=== PATIENT | male | born 1965 | race Caucasian/White ===

== ENCOUNTER 2019-06-02 15:39 | Inpatient (IN) | payer OTHER ==
[2019-06-02 16:34] VITALS: BMI 28.3
[2019-06-02] MEDS ORDERED: SODIUM CHLORIDE 1,000 ML IV STA (18:12)
--- NOTE | 2019-06-02 18:47 | PDOC ---
History of Present Illness - General Chief Complaint: Altered Mental Status Stated Complaint: ALTERED MENTAL STATUS, SICK Time Seen by Provider: 06/02/19 17:17 - History of Present Illness Initial Comments: 06/02/19 21:10 54yo M hx horseshoe kidney and multiple kidney stones and infections s/p R nephrostomy tube placement BIBEMS found on street confused c/o tube detaching from bag. Pt is poor historian but states police brought him in because he was sitting in front of someone's house. Pt states he doesn't have anywhere to live right now. Pt states he's confused. Pt states he stepped on his nephrostomy collection bag and the tube disconnected, spilling the urine. States he had the nephrostomy tube placed 1 month ago at [place]. States he takes Seroquel, Methadone, an antibiotic?, and Xanax. Endorses smoking but denies alcohol and illicit drug use recently, including IVDU. Endorses hx of drug use. Endorses flank pain, burning with urination. Denies fall, trauma, headache, dizziness, vision changes, CP, SOB, back pain, neck pain, abdominal pain, D/C, N/V, F/C, blood in stool, numbness/tingling, weakness. No PCP. Deneis allergies. Past History - Past Medical History Allergies/Adverse Reactions: Allergies Allergy/AdvReac Type Severity Reaction Status Date / Time No Known Allergies Allergy Verified 06/02/19 16:02 Home Medications: Ambulatory Orders Methadone [Dolophine -] 110 mg PO DAILY 06/02/19 Quetiapine Fumarate [Seroquel] 100 tab PO DAILY 06/02/19 - Suicide/Smoking/Psychosocial Hx Smoking History: Smoker current status UNK Hx Alcohol Use: No Drug/Substance Use Hx: No Review of Systems - Review of Systems Comments:: 06/02/19 21:19 Constitutional: Negative for chills, fever, fatigue. HENT: Negative for sore throat, rhinorrhea, congestion. Eyes: Negative for visual disturbance. Respiratory: Negative for shortness of breath, cough, and wheezing. Cardiovascular: Negative for chest pain, palpitations, and leg swelling. Gastrointestinal: Negative for abdominal pain, blood in stool, constipation, diarrhea, nausea, and vomiting. Genitourinary: Positive for flank pain, dysuria, and nephrostomy tube detachment from bag. Negative for hematuria. Musculoskeletal: Negative for myalgias, back pain, and neck pain. Skin: Negative for rash. Neurological: Negative for light-headedness, dizziness, syncope, weakness, numbness and headaches. Psychiatric/Behavioral: Positive for confusion. Negative for behavioral problems. *Physical Exam - Vital Signs Last Vital Signs Temp Pulse Resp BP Pulse Ox 98.6 F 83 16 154/97 99 06/02/19 16:00 06/02/19 16:00 06/02/19 16:00 06/02/19 16:00 06/02/19 16:30 - Physical Exam Comments: 06/02/19 21:20 Gen: Alert, NAD, tired but comfortable-appearing. HEENT: PERRL, EOMI, MMM, NCAT. No conjunctival pallor. Sclera are non-icteric. Oropharynx is clear. CV: Regular rate and rhythm. No murmurs, rubs, or gallops. PULM: No resp distress. CTAB, no wheezes, rales, or rhonchi. ABD: +R CVA tenderness, R nephrostomy tube in place without any erythema, warmth , bleeding, or drainage; tube end draining well to bed because detached from bag ; abdomen soft, NT/ND, no rebound tenderness or guarding. BACK: No TTP of c/t/l-spine. No step-offs or deformities. MSK: No bony deformities. 2+ pulses in all extremities. NEURO: Alert but sleepy, oriented to name and event, but not place or month. PERRL. 5/5 strength in all extremities. Sensation to light touch intact in all extremities. No pronator drift. No dysmetria. No dysdiadochokinesia. No abnormal nystagmus. No skew deviation. EXTREMITIES: No cyanosis. No clubbing. No edema. No calf tenderness. PSYCH: Slightly slurred speech, speaks slowly, confused. Normal mood. SKIN: Red skin (pt states sunburn) on sun-exposed areas of body, no blisters. Warm and dry. Normal capillary refill. No rashes. No jaundice. Heart Score/ECG Review - ECG Impressions Comment:: 06/02/19 21:32 NSR, 74bpm, normal axis, no SHELLIE/TWIs ED Treatment Course - LABORATORY CBC & Chemistry Diagram: 06/02/19 20:55 06/02/19 20:15 - RADIOLOGY Radiology Studies Ordered: Category Date Time Status ABDOMEN & PELVIS CT WITH CONTR [CT] Stat CT Scan 06/02/19 18:[address] WITHOUT CONTRAST [CT] Stat CT Scan 06/02/19 17:57 Ordered CHEST PA & LAT [RAD] Stat Radiology 06/02/19 17:59 Ordered Medical Decision Making - Medical Decision Making 54yo M hx horseshoe kidney and multiple kidney stones and infections s/p R nephrostomy tube placement BIBEMS found on street confused with nephrostomy tube in place and draining well but detached from bag. No signs of infection, displacement, or obstruction of nephrostomy. Flank pain and dysuria concerning for UTI or renal stones - UA/UC and CTAP. Consider and r/o other etiologies of AMS including anemia, infection, metabolic derangements, ACS/MS (low pre-trop/ EKG HEART score, but poor historian), intoxication, and intracranial hemorrhage (although unlikely due to lack of trauma and lack of focal neurologic deficits) . Pt homeless and seems unable to care for self; likely admit pending workup. -EKG -Labs: CBC, CMP, Cardiac profile, UA/UC, Drug screen, Acetaminophen, Salicylate , EtOH -1L IVF -Rectal temp -Imaging: CTH, CTAP -Dispo: likely admit pending workup Pt refused rectal temp. 06/02/19 20:55 IV US done for labs. Due to WBC 15.9, added Acetone, Lactic, and BCx x2. 06/02/19 21:35 Pt appears comfortable sleeping in bed. 06/02/19 21:36 Labs reviewed. WBC 12.8, trace acetone. 06/02/19 21:[address] Austin. *DC/Admit/Observation/Transfer Diagnosis at time of Disposition: Altered mental status - Discharge Dispostion Condition at time of disposition: Fair - Referrals - Patient Instructions - Post Discharge Activity
[2019-06-02 19:15] LABS: BASO % 0.7 % (0-2.0); EOS % 0.6 % (0-4.5); HEMATOCRIT 38.1 % (35.4-49); HEMOGLOBIN 12.5 GM/dL (11.7-16.9); LYMPH % 19.7 % (8-40); MCH 26.2 pg (25.7-33.7); MCHC 32.7 g/dl (32.0-35.9); MEAN CELL VOLUME 80.1 fl (80-96); MEAN PLT VOLUME 9.6 fl (7.5-11.1); MONO % 6.7 % (3.8-10.2); NEUT % 72.3 % (42.8-82.8); PLATELET COUNT 267 K/MM3 (134-434); RBC 4.76 M/mm3 (4.00-5.60); RDW 17.4 % (11.9-15.9); WHITE BLOOD COUNT 15.9 K/mm3 (4.0-10.0)
[2019-06-02 21:17] LABS: BASO % 0.7 % (0-2.0); HEMATOCRIT 37.3 % (35.4-49); MCH 26.3 pg (25.7-33.7); WHITE BLOOD COUNT 12.8 K/mm3 (4.0-10.0)
[2019-06-02 21:28] LABS: EOS % 1.2 % (0-4.5); HEMOGLOBIN 12.2 GM/dL (11.7-16.9); INR 1.17 (0.83-1.09); MCHC 32.8 g/dl (32.0-35.9); MEAN CELL VOLUME 80.1 fl (80-96); MEAN PLT VOLUME 9.1 fl (7.5-11.1); MONO % 6.8 % (3.8-10.2); NEUT % 72.3 % (42.8-82.8); PLATELET COUNT 304 K/MM3 (134-434); PROTHROMBIN TIME (PATIENT) 13.8 SEC (9.7-13.0); RBC 4.65 M/mm3 (4.00-5.60); RDW 17.7 % (11.9-15.9)
[2019-06-02 21:34] LABS: ACETONE SERUM TRACE (NEGATIVE)
[2019-06-02 21:59] LABS: ALBUMIN 3.8 g/dl (3.4-5.0); ALK PHOS 126 U/L (45-117); ANION GAP 11 MMOL/L (8-16); BILIRUBIN,TOTAL 0.8 mg/dL (0.2-1); BLOOD UREA NITROGEN 43.3 mg/dL (7-18); CALCIUM 9.8 mg/dL (8.5-10.1); CHLORIDE 101 mmol/L (98-107); CO2 27 mmol/L (21-32); CREATININE 1.3 mg/dL (0.55-1.3); GLUCOSE,RANDOM 81 mg/dL (74-106); POTASSIUM 4.7 mmol/L (3.5-5.1); SGOT/AST 16 U/L (15-37); SGPT/ALT 29 U/L (13-61); SODIUM 139 mmol/L (136-145); TOT PROT 7.7 g/dl (6.4-8.2)
--- NOTE | 2019-06-03 01:20 | PDOC ---
*Physical Exam - Vital Signs Last Vital Signs Temp Pulse Resp BP Pulse Ox 98.6 F 83 16 154/97 99 06/02/19 16:00 06/02/19 16:00 06/02/19 16:00 06/02/19 16:00 06/02/19 16:30 ED Treatment Course - LABORATORY CBC & Chemistry Diagram: 06/04/19 06:00 06/04/19 06:00 - ADDITIONAL ORDERS Additional order review: Laboratory Results 06/02/19 06/02/19 06/02/19 20:55 20:50 20:50 PT with INR 13.80 H INR 1.17 H Sodium Potassium Chloride Carbon Dioxide Anion Gap BUN Creatinine Est GFR (CKD-EPI)AfAm Est GFR (CKD-EPI)NonAf Random Glucose Lactic Acid 1.3 Calcium Total Bilirubin AST ALT Alkaline Phosphatase Ammonia Creatine Kinase 73 Troponin I < 0.02 Total Protein Albumin Salicylates Acetaminophen Alcohol, Quantitative Acetone, Qual Trace 06/02/19 06/02/19 20:50 20:15 PT with INR INR Sodium 139 Potassium 4.7 Chloride 101 Carbon Dioxide 27 Anion Gap 11 BUN 43.3 H Creatinine 1.3 Est GFR (CKD-EPI)AfAm 71.69 Est GFR (CKD-EPI)NonAf 61.86 Random Glucose 81 Lactic Acid Calcium 9.8 Total Bilirubin 0.8 AST 16 ALT 29 Alkaline Phosphatase 126 H Ammonia < 10.00 L Creatine Kinase Troponin I Total Protein 7.7 Albumin 3.8 Salicylates 2.6 L Acetaminophen < 2.0 L Alcohol, Quantitative < 3.0 Acetone, Qual 06/02/19 06/02/19 20:55 18:18 RBC 4.65 4.76 MCV 80.1 80.1 MCHC 32.8 32.7 RDW 17.7 H 17.4 H MPV 9.1 9.6 Neutrophils % 72.3 72.3 Lymphocytes % 19.0 19.7 Monocytes % 6.8 6.7 Eosinophils % 1.2 D 0.6 Basophils % 0.7 0.7 - Medications Given in the ED: ED Medications Discontinued Medications Generic Name Dose Route Start Last Admin Trade Name Freq PRN Reason Stop Dose Admin Sodium Chloride 1,000 mls @ 1,000 mls/hr 06/02/19 18:12 06/02/19 21:00 Normal Saline - IV 06/02/19 19:11 1,000 mls/hr ASDIR STA Administration Medical Decision Making - Medical Decision Making 06/03/19 01:20 Pt was signed out to me; awaiting head CT; to be admitted for AMS. Patient Name: LUPE SOSA THIS IS A PRELIMINARY REPORT FROM [facility] [employer] EXAM: CT Head wo IMAGES: 149 EXAM DATE AND TIME: 2019-06-02 22:26:36 HISTORY: 54 year old man: Altered mental status. COMPARISON: None TECHNIQUE: Non-contrast axial images were obtained. Coronal and sagittal images were also generated. FINDINGS: The sulci and ventricles are moderately prominent, suggesting age related involutional changes. There are no intracranial hemorrhages, extra-axial fluid collections or evidence of an intra-axial mass lesion. There is focal encephalomalacia, measuring 2.6 x 0.4 cm, in the right basal ganglia involving the lateral caudate head, internal capsule anterior limb and anterior putamen. There are no other chronic ischemic lesions noted within the brain. Cerebral rizo/white matter differentiation is preserved, without clear evidence of an acute ischemic lesion at this time. Orbital and petrous structures, cerebellopontine angles, and posterior fossa appear unremarkable. The paranasal and mastoid sinuses are clear. IMPRESSION: Focal encephalomalacia in the right basal ganglia involving the lateral caudate head, internal capsule anterior limb and anterior putamen. Moderate age related involutional changes. The study is otherwise unremarkable. No intracranial hemorrhages, extra-axial fluid collections or intra-axial mass lesion. *DC/Admit/Observation/Transfer Diagnosis at time of Disposition: Altered mental status - Discharge Dispostion Condition at time of disposition: Fair - Referrals - Patient Instructions - Post Discharge Activity
--- NOTE | 2019-06-03 07:54 | PDOC ---
*Physical Exam - Vital Signs Last Vital Signs Temp Pulse Resp BP Pulse Ox 98.6 F 59 L 18 134/70 99 06/02/19 16:00 06/03/19 05:43 06/03/19 00:00 06/03/19 05:43 06/03/19 05:43 ED Treatment Course - LABORATORY CBC & Chemistry Diagram: 06/04/19 06:00 06/04/19 06:00 - ADDITIONAL ORDERS Additional order review: Laboratory Results 06/03/19 06/03/19 06/02/19 01:52 01:51 20:55 PT with INR 13.80 H INR 1.17 H Sodium Potassium Chloride Carbon Dioxide Anion Gap BUN Creatinine Est GFR (CKD-EPI)AfAm Est GFR (CKD-EPI)NonAf Random Glucose Lactic Acid Calcium Total Bilirubin AST ALT Alkaline Phosphatase Ammonia Creatine Kinase Troponin I C-Reactive Protein 1.5 H Total Protein Albumin Vitamin B12 603 TSH 1.01 Salicylates Acetaminophen Alcohol, Quantitative Acetone, Qual 06/02/19 06/02/19 06/02/19 20:50 20:50 20:50 PT with INR INR Sodium Potassium Chloride Carbon Dioxide Anion Gap BUN Creatinine Est GFR (CKD-EPI)AfAm Est GFR (CKD-EPI)NonAf Random Glucose Lactic Acid 1.3 Calcium Total Bilirubin AST ALT Alkaline Phosphatase Ammonia < 10.00 L Creatine Kinase 73 Troponin I < 0.02 C-Reactive Protein Total Protein Albumin Vitamin B12 TSH Salicylates Acetaminophen Alcohol, Quantitative Acetone, Qual Trace 06/02/19 20:15 PT with INR INR Sodium 139 Potassium 4.7 Chloride 101 Carbon Dioxide 27 Anion Gap 11 BUN 43.3 H Creatinine 1.3 Est GFR (CKD-EPI)AfAm 71.69 Est GFR (CKD-EPI)NonAf 61.86 Random Glucose 81 Lactic Acid Calcium 9.8 Total Bilirubin 0.8 AST 16 ALT 29 Alkaline Phosphatase 126 H Ammonia Creatine Kinase Troponin I C-Reactive Protein Total Protein 7.7 Albumin 3.8 Vitamin B12 TSH Salicylates 2.6 L Acetaminophen < 2.0 L Alcohol, Quantitative < 3.0 Acetone, Qual 06/02/19 06/02/19 20:55 18:18 RBC 4.65 4.76 MCV 80.1 80.1 MCHC 32.8 32.7 RDW 17.7 H 17.4 H MPV 9.1 9.6 Neutrophils % 72.3 72.3 Lymphocytes % 19.0 19.7 Monocytes % 6.8 6.7 Eosinophils % 1.2 D 0.6 Basophils % 0.7 0.7 - RADIOLOGY Radiology Studies Ordered: Category Date Time Status CXRPORT [CHEST X-RAY PORTABLE*] [RAD] Stat Radiology 06/02/19 23:29 Completed - Medications Given in the ED: ED Medications Discontinued Medications Generic Name Dose Route Start Last Admin Trade Name Freq PRN Reason Stop Dose Admin Sodium Chloride 1,000 mls @ 1,000 mls/hr 06/02/19 18:12 06/02/19 21:00 Normal Saline - IV 06/02/19 19:11 1,000 mls/hr ASDIR STA Administration Medical Decision Making - Medical Decision Making 06/03/19 07:54 54 yo M with h/o horshoe kidney, multiple kidney stones/infections and right nephrostomy tube place BIBEMS found on street, confused and disoriented by EMS. Vitals wnl, AF. Physical exam with R sided nephrostomy tube in place. Patient endorsed by Dr. Gipson. Laboratory Tests 06/02/19 06/02/19 06/02/19 20:15 20:50 20:50 WBC Hgb Hct Plt Count Sodium 139 Potassium 4.7 BUN 43.3 H Creatinine 1.3 Lactic Acid 1.3 Ammonia < 10.00 L Troponin I C-Reactive Protein TSH Salicylates 2.6 L Acetaminophen < 2.0 L Alcohol, Quantitative < 3.0 Acetone, Qual 06/02/19 06/02/19 06/03/19 20:50 20:55 01:51 WBC 12.8 H Hgb 12.2 Hct 37.3 Plt Count 304 Sodium Potassium BUN Creatinine Lactic Acid Ammonia Troponin I < 0.02 C-Reactive Protein 1.5 H TSH Salicylates Acetaminophen Alcohol, Quantitative Acetone, Qual Trace 06/03/19 01:52 WBC Hgb Hct Plt Count Sodium Potassium BUN Creatinine Lactic Acid Ammonia Troponin I C-Reactive Protein TSH 1.01 Salicylates Acetaminophen Alcohol, Quantitative Acetone, Qual 06/03/19 07:55 CTH: No acute change Unable to collect urine. Refuses catherization Pt. ED course notable for non draining R neprhostomy tube, pending CTAP and admission 06/03/19 08:02 Pt. endorsed to day team, stable. *DC/Admit/Observation/Transfer Diagnosis at time of Disposition: Altered mental status - Discharge Dispostion Condition at time of disposition: Fair Decision to Admit order Date/Time: Decision to Admit Order Category Date Time Status Decision to Admit to Hospital Routine Admission 06/03/19 06:58 Active - Referrals - Patient Instructions - Post Discharge Activity
--- NOTE | 2019-06-03 09:46 | PDOC ---
*Physical Exam - Vital Signs Last Vital Signs Temp Pulse Resp BP Pulse Ox 98.6 F 59 L 18 134/70 99 06/02/19 16:00 06/03/19 05:43 06/03/19 00:00 06/03/19 05:43 06/03/19 05:43 - Physical Exam General Appearance: No: Apparent Distress Integumentary: positive: Normal Color Neurologic: positive: Fully Oriented, Alert, Normal Mood/Affect ED Treatment Course - LABORATORY CBC & Chemistry Diagram: 06/02/19 20:55 06/02/19 20:15 - ADDITIONAL ORDERS Additional order review: Laboratory Results 06/03/19 06/03/19 06/02/19 01:52 01:51 20:50 Sodium Potassium Chloride Carbon Dioxide Anion Gap BUN Creatinine Est GFR (CKD-EPI)AfAm Est GFR (CKD-EPI)NonAf Random Glucose Calcium Total Bilirubin AST ALT Alkaline Phosphatase Ammonia Creatine Kinase 73 Troponin I < 0.02 C-Reactive Protein 1.5 H Total Protein Albumin Vitamin B12 603 TSH 1.01 Salicylates Acetaminophen Alcohol, Quantitative 06/02/19 06/02/19 20:50 20:15 Sodium 139 Potassium 4.7 Chloride 101 Carbon Dioxide 27 Anion Gap 11 BUN 43.3 H Creatinine 1.3 Est GFR (CKD-EPI)AfAm 71.69 Est GFR (CKD-EPI)NonAf 61.86 Random Glucose 81 Calcium 9.8 Total Bilirubin 0.8 AST 16 ALT 29 Alkaline Phosphatase 126 H Ammonia < 10.00 L Creatine Kinase Troponin I C-Reactive Protein Total Protein 7.7 Albumin 3.8 Vitamin B12 TSH Salicylates 2.6 L Acetaminophen < 2.0 L Alcohol, Quantitative < 3.0 06/02/19 06/02/19 20:55 18:18 RBC 4.65 4.76 MCV 80.1 80.1 MCHC 32.8 32.7 RDW 17.7 H 17.4 H MPV 9.1 9.6 Neutrophils % 72.3 72.3 Lymphocytes % 19.0 19.7 Monocytes % 6.8 6.7 Eosinophils % 1.2 D 0.6 Basophils % 0.7 0.7 - Medications Given in the ED: ED Medications Discontinued Medications Generic Name Dose Route Start Last Admin Trade Name Freq PRN Reason Stop Dose Admin Sodium Chloride 1,000 mls @ 1,000 mls/hr 06/02/19 18:12 06/02/19 21:00 Normal Saline - IV 06/02/19 19:11 1,000 mls/hr ASDIR STA Administration Medical Decision Making - Medical Decision Making Received sign out from resident Dr. Austin. Will f/u on pending CTAP. [facility] night service was made aware of pt but requested radiologist report on CT scan before accepting the admission. CT revealed displaced right nephrostomy tube. [facility] day team requested Dr. Dykes be consulted for the admission. Dr. Dykes was contacted via telephone and requested urology consultation prior to accepting the admission. Pt reports his nephrostomy tube was placed at [facility] but is unable to recall which hospital and/or the surgeon. Contacted [facility] urology service. Resident reports the pt requested urology services to be transferred to [facility] Dr. Shon Tracy after March 2019. Dr. Tracy was contacted who reports the pt was lost to f/u. Requested [facility] IR be contacted to replace nephrostomy tube. Pt to f/u as outpatient at [facility] ( ) within the next week. Dr. Garcia of IR was consulted and replaced nephrostomy tube. Dr. Dykes was re- consulted. Will admit pt to telemetry for episode of altered mental status. Ordered UA and Urine culture to be obtained from nephrostomy tube, which were pending at the time of admission. Antibiotics were not administered without infectious symptoms or vital sign derangement. Urologist: Dr. Shon Tracy, [facility], [facility]: [phone] Sly Shannon M.D., PGY2 Emergency Medicine Resident *DC/Admit/Observation/Transfer Diagnosis at time of Disposition: Altered mental status - Discharge Dispostion Condition at time of disposition: Fair - Referrals - Patient Instructions - Post Discharge Activity
--- NOTE | 2019-06-03 09:59 | EKG ---
Test Reason : Blood Pressure : / mmHG Vent. Rate : 074 BPM Atrial Rate : 074 BPM P-R Int : 166 ms QRS Dur : 090 ms QT Int : 402 ms P-R-T Axes : 068 011 053 degrees QTc Int : 446 ms NORMAL SINUS RHYTHM NORMAL ECG NO PREVIOUS ECGS AVAILABLE Confirmed by ZULEIMA ROWE MD ([id number]) on 06/03/2019 9:58:54 AM Referred By: Confirmed By:ZULEIMA ROWE MD
[2019-06-03] MEDS ORDERED: ACETAMINOPHEN 325 MG TABLET (FP) PO PRN (19:45)
--- NOTE | 2019-06-03 19:49 | HP ---
Admitting History and Physical - Primary Care Physician PCP: Daphnie Dykes - Admission History of Present Illness: 54yo M hx horseshoe kidney and multiple kidney stones and infections s/p R nephrostomy tube placement BIBEMS found on street confused c/o tube detaching from bag. Pt is poor historian but states police brought him in because he was sitting in front of someone's house. Pt states he doesn't have anywhere to live right now. Pt states he's confused. Pt states he stepped on his nephrostomy collection bag and the tube disconnected, spilling the urine. States he had the nephrostomy tube placed 1 month ago at [place]. States he takes Seroquel, Methadone, an antibiotic?, and Xanax. Endorses smoking but denies alcohol and illicit drug use recently, including IVDU. Endorses hx of drug use. Endorses flank pain, burning with urination. Denies fall, trauma, headache, dizziness, vision changes, CP, SOB, back pain, neck pain, abdominal pain, D/C, N/V, F/C, blood in stool, numbness/tingling, weakness. No PCP. Deneis allergies. - Smoking History Smoking history: Smoker current status UNK - Alcohol/Substance Use Hx Alcohol Use: No Home Medications - Allergies Allergies/Adverse Reactions: Allergies Allergy/AdvReac Type Severity Reaction Status Date / Time No Known Allergies Allergy Verified 06/02/19 16:02 - Home Medications Home Medications: Ambulatory Orders Methadone [Dolophine -] 110 mg PO DAILY 06/02/19 Quetiapine Fumarate [Seroquel] 100 tab PO DAILY 06/02/19 Physical Examination Vital Signs: Vital Signs Temperature 98.6 F 06/03/19 18:27 Pulse Rate 73 06/03/19 18:27 Respiratory Rate 16 06/03/19 15:18 Blood Pressure 133/60 06/03/19 18:27 O2 Sat by Pulse Oximetry (%) 99 06/03/19 18:27 Constitutional: Yes: Anxious HENT: Yes: Atraumatic Neck: Yes: Supple Cardiovascular: Yes: Regular Rate and Rhythm Respiratory: Yes: CTA Bilaterally Gastrointestinal: Yes: Normal Bowel Sounds Extremities: Yes: WNL Neurological: Yes: Alert, Oriented Labs: CBC, BMP 06/02/19 20:55 06/02/19 20:15 Imaging - Results X-ray: Report Reviewed Cat Scan: Report Reviewed Problem List - Problems (1) Altered mental status Assessment/Plan: better now Code(s): R41.82 - ALTERED MENTAL STATUS, UNSPECIFIED (2) Nephrostomy tube displaced Assessment/Plan: fixed Code(s): T83.022A - DISPLACEMENT OF NEPHROSTOMY CATHETER, INITIAL ENCOUNTER (3) Leukocytosis Code(s): D72.829 - ELEVATED WHITE BLOOD CELL COUNT, UNSPECIFIED Qualifiers: Leukocytosis type: unspecified Qualified Code(s): D72.829 - Elevated white blood cell count, unspecified (4) Substance abuse Code(s): F19.10 - OTHER PSYCHOACTIVE SUBSTANCE ABUSE, UNCOMPLICATED (5) UTI (urinary tract infection) Assessment/Plan: on abx cxs pending Code(s): N39.0 - URINARY TRACT INFECTION, SITE NOT SPECIFIED Assessment/Plan Laboratory Tests 06/02/19 06/02/19 06/02/19 18:18 20:15 20:50 WBC 15.9 H RBC 4.76 Hgb 12.5 Hct 38.1 MCV 80.1 MCH 26.2 MCHC 32.7 RDW 17.4 H Plt Count 267 MPV 9.6 Absolute Neuts (auto) 11.5 H Neutrophils % 72.3 Lymphocytes % 19.7 Monocytes % 6.7 Eosinophils % 0.6 Basophils % 0.7 Nucleated RBC % 0 ESR PT with INR INR Sodium 139 Potassium 4.7 Chloride 101 Carbon Dioxide 27 Anion Gap 11 BUN 43.3 H Creatinine 1.3 Est GFR (CKD-EPI)AfAm 71.69 Est GFR (CKD-EPI)NonAf 61.86 Random Glucose 81 Lactic Acid Calcium 9.8 Total Bilirubin 0.8 AST 16 ALT 29 Alkaline Phosphatase 126 H Ammonia < 10.00 L Creatine Kinase Troponin I C-Reactive Protein Total Protein 7.7 Albumin 3.8 Vitamin B12 TSH Salicylates 2.6 L Acetaminophen < 2.0 L Alcohol, Quantitative < 3.0 Acetone, Qual RPR Titer 06/02/19 06/02/19 06/02/19 20:50 20:50 20:55 WBC 12.8 H RBC 4.65 Hgb 12.2 Hct 37.3 MCV 80.1 MCH 26.3 MCHC 32.8 RDW 17.7 H Plt Count 304 MPV 9.1 Absolute Neuts (auto) 9.3 H Neutrophils % 72.3 Lymphocytes % 19.0 Monocytes % 6.8 Eosinophils % 1.2 D Basophils % 0.7 Nucleated RBC % 0 ESR PT with INR INR Sodium Potassium Chloride Carbon Dioxide Anion Gap BUN Creatinine Est GFR (CKD-EPI)AfAm Est GFR (CKD-EPI)NonAf Random Glucose Lactic Acid 1.3 Calcium Total Bilirubin AST ALT Alkaline Phosphatase Ammonia Creatine Kinase 73 Troponin I < 0.02 C-Reactive Protein Total Protein Albumin Vitamin B12 TSH Salicylates Acetaminophen Alcohol, Quantitative Acetone, Qual Trace RPR Titer 06/02/19 06/03/19 06/03/19 20:55 01:51 01:51 WBC RBC Hgb Hct MCV MCH MCHC RDW Plt Count MPV Absolute Neuts (auto) Neutrophils % Lymphocytes % Monocytes % Eosinophils % Basophils % Nucleated RBC % ESR Cancelled PT with INR 13.80 H INR 1.17 H Sodium Potassium Chloride Carbon Dioxide Anion Gap BUN Creatinine Est GFR (CKD-EPI)AfAm Est GFR (CKD-EPI)NonAf Random Glucose Lactic Acid Calcium Total Bilirubin AST ALT Alkaline Phosphatase Ammonia Creatine Kinase Troponin I C-Reactive Protein 1.5 H Total Protein Albumin Vitamin B12 TSH Salicylates Acetaminophen Alcohol, Quantitative Acetone, Qual RPR Titer 06/03/19 06/03/19 01:52 03:22 WBC RBC Hgb Hct MCV MCH MCHC RDW Plt Count MPV Absolute Neuts (auto) Neutrophils % Lymphocytes % Monocytes % Eosinophils % Basophils % Nucleated RBC % ESR PT with INR INR Sodium Potassium Chloride Carbon Dioxide Anion Gap BUN Creatinine Est GFR (CKD-EPI)AfAm Est GFR (CKD-EPI)NonAf Random Glucose Lactic Acid Calcium Total Bilirubin AST ALT Alkaline Phosphatase Ammonia Creatine Kinase Troponin I C-Reactive Protein Total Protein Albumin Vitamin B12 603 TSH 1.01 Salicylates Acetaminophen Alcohol, Quantitative Acetone, Qual RPR Titer Nonreactive Active Medications Generic Name Dose Route Start Last Admin Trade Name Freq PRN Reason Stop Dose Admin Acetaminophen 650 mg 06/03/19 19:45 Tylenol - PO Q6H PRN FEVER Heparin Sodium (Porcine) 5,000 unit 06/03/19 22:00 Heparin - SQ BID KURTIS Methadone HCl 110 mg 06/04/19 10:00 Dolophine - PO DAILY [facility] Quetiapine Fumarate 10,000 mg 06/04/19 10:00 Seroquel - PO DAILY [facility]
[2019-06-03] MEDS ORDERED: PT OWN MED DRAWER 7, Y5N ONE (21:47)
[2019-06-03] MEDS: HEPARIN NA (PORCINE) 5,000 UNITS/ML 1ML VIAL SQ SCH (21:54)
[2019-06-04 06:56] LABS: BASO % 0.7 % (0-2.0); HEMATOCRIT 35.3 % (35.4-49); HEMOGLOBIN 11.8 GM/dL (11.7-16.9); MCH 26.7 pg (25.7-33.7); MCHC 33.4 g/dl (32.0-35.9); MEAN CELL VOLUME 79.9 fl (80-96); MEAN PLT VOLUME 9.4 fl (7.5-11.1); MONO % 7.9 % (3.8-10.2); NEUT % 70.4 % (42.8-82.8); RBC 4.42 M/mm3 (4.00-5.60); RDW 17.5 % (11.9-15.9); WHITE BLOOD COUNT 10.1 K/mm3 (4.0-10.0)
[2019-06-04 07:33] LABS: ALBUMIN 3.1 g/dl (3.4-5.0); ALK PHOS 102 U/L (45-117); ANION GAP 7 MMOL/L (8-16); BILIRUBIN,TOTAL 0.6 mg/dL (0.2-1); BLOOD UREA NITROGEN 29.8 mg/dL (7-18); CHLORIDE 108 mmol/L (98-107); CO2 26 mmol/L (21-32); CREATININE 1.1 mg/dL (0.55-1.3); GLUCOSE,RANDOM 105 mg/dL (74-106); POTASSIUM 3.9 mmol/L (3.5-5.1); SGOT/AST 9 U/L (15-37); SGPT/ALT 20 U/L (13-61); SODIUM 142 mmol/L (136-145); TOT PROT 6.4 g/dl (6.4-8.2)
[2019-06-04 08:02] LABS: PLATELET COUNT 241 K/MM3 (134-434)
[2019-06-04 09:19] LABS: EPI CELLS 2.7 /HPF (0-5/HPF); HYALINE CASTS 57 /lpf (0-8); URINE APPEARANCE TURBID; URINE BACTERIA 1076.2 /hpf (NEGATIVE); URINE BILIRUBIN NEGATIVE (NEGATIVE); URINE COLOR YELLOW; URINE GLUCOSE (UA) NEGATIVE (NEGATIVE); URINE KETONE NEGATIVE (NEGATIVE); URINE LEUK ESTERASE 3+ (NEGATIVE); URINE NITRITE POSITIVE (NEGATIVE); URINE PROTEIN 2+ (NEGATIVE); URINE RBC 44 /hpf (0-4); URINE WBC 950 /hpf (0-5)
[2019-06-04] MEDS ORDERED: METHADONE HCL 40 MG DISPERSABLE TABLET PO SCH ×3 (10:00)
--- NOTE | 2019-06-04 10:00 | CON.CARD ---
Consult Consult Specialty:: Cardiology Referred by:: Dr. Dykes Reason for Consultation:: Cardiac evaluation - History of Present Illness History of Present Illness: Patient is a 54 year old male with history of horseshoe kidney with multiple kidney stones and infections who has right nephrostomy ttube placement. He was brought in to [facility] with confusion in the streets with nephrostomy tube detached from the bag. He is homeless currently. He stated that he stepped on the tube and it got disconnected spilling the urine. Medical record indicates that nephrostopmy tube was placed 1 month ago at [facility]. Tube was reattached. Currently, he denies chest pain, shortness of breath or palpitations. He denies paroxysmal nocturnal dyspnea or orthopnea. He denies fever or chills. He denies nausea, vomiting, diarrhea or abdominal pain. He denies headache or lightheadedness. - History Source History Provided By: Patient, Medical Record Limitations to Obtaining History: Poor Historian - Past Medical History Renal/: Yes: UTI - Past Surgical History Additional Surgical History: nephrostomy tube placement - Alcohol/Substance Use Hx Alcohol Use: No History of Substance Use: reports: Heroin - Smoking History Smoking history: Current some day smoker Have you smoked in the past 12 months: Yes Aproximately how many cigarettes per day: 5 Home Medications - Allergies Allergies/Adverse Reactions: Allergies Allergy/AdvReac Type Severity Reaction Status Date / Time No Known Allergies Allergy Verified 06/02/19 16:02 - Home Medications Home Medications: Ambulatory Orders Methadone [Dolophine -] 110 mg PO DAILY 06/02/19 Quetiapine Fumarate [Seroquel] 100 tab PO DAILY 06/02/19 Family Disease History - Family Disease History Family History: Denies Review of Systems - Review of Systems Constitutional: denies: Chills, Fever Cardiovascular: denies: Chest Pain, Palpitations, Shortness of Breath Respiratory: denies: Cough, Hemoptysis, Orthopnea, PND Gastrointestinal: denies: Abdominal Pain, Constipation, Diarrhea, Melena, Nausea , Rectal Bleeding, Vomiting Musculoskeletal: denies: Back Pain, Joint Pain Neurological: denies: Dizziness, Headache, Seizure, Syncope Vital Signs: Vital Signs Temperature 98.4 F 06/04/19 05:38 Pulse Rate 60 06/04/19 05:38 Respiratory Rate 20 06/04/19 05:38 Blood Pressure 132/83 06/04/19 05:38 O2 Sat by Pulse Oximetry (%) 99 06/04/19 04:00 Eyes: Yes: PERRL HENT: Yes: Atraumatic Neck: Yes: Supple Respiratory: Yes: CTA Bilaterally Gastrointestinal: Yes: Normal Bowel Sounds, Soft. No: Tenderness Cardiovascular: Yes: Regular Rate and Rhythm JVD: No PMI: Non-Displaced Heart Sounds: Yes: S1, S2. No: Gallop Edema: No - Other Data Labs, Other Data: CBC, BMP 06/04/19 06:00 06/04/19 06:00 INR, PTT INR 1.17 (0.83-1.09) H 06/02/19 20:55 Troponin, BNP 06/03/19 06/04/19 01:51 06:00 Troponin I < 0.02 < 0.02 NSR with normal ECG Imaging - Results Chest X-ray: Report Reviewed Cat Scan: Report Reviewed (Head CT chronic right striatocapsular infarct) EKG: Report Reviewed Problem List - Problems (1) Substance abuse Code(s): F19.10 - OTHER PSYCHOACTIVE SUBSTANCE ABUSE, UNCOMPLICATED (2) Leukocytosis Code(s): D72.829 - ELEVATED WHITE BLOOD CELL COUNT, UNSPECIFIED (3) Altered mental status Code(s): R41.82 - ALTERED MENTAL STATUS, UNSPECIFIED (4) Nephrostomy tube displaced Code(s): T83.022A - DISPLACEMENT OF NEPHROSTOMY CATHETER, INITIAL ENCOUNTER Assessment/Plan 1. Noncompliance due to social situation 2. Nephrostomy dislodgement 3. Altered mental status, ? etiology 4. History of nephrolithiasis and UTIs 5. History of substance abuse currently on Methadone 6. Leukocytosis PLAN: 1. ID input to follow to see if he needs empiric antibiotics 2. legal services manager for placement 3. No need for further cardiac evaluation or medications Further plans are to follow Marty Rankin MD
[2019-06-04] MEDS ORDERED: QUEtiapine FUMARATE 50 MG TABLET ONE (10:17)
[2019-06-04] MEDS: HEPARIN NA (PORCINE) 5,000 UNITS/ML 1ML VIAL SQ SCH ×2 (10:19→22:08)
[2019-06-04] MEDS: QUEtiapine FUMARATE 100 MG TABLET (FP) PO SCH (10:19)
[2019-06-04] MEDS ORDERED: METHADONE 80 MG, METHADONE 30 MG PO SCH ×2 (10:45)
[2019-06-04] MEDS ORDERED: METHADONE HCL 40 MG DISPERSABLE TABLET ONE (10:53)
[2019-06-04] MEDS ORDERED: METHADONE HCL 10 MG TABLET ONE (10:53)
[2019-06-04] MEDS: METHADONE 80 MG, METHADONE 30 MG PO SCH (10:57)
--- NOTE | 2019-06-04 15:20 | CON.ID ---
Consult - Past Medical History Renal/: Yes: UTI - Past Surgical History Additional Surgical History: nephrostomy tube placement - Alcohol/Substance Use Hx Alcohol Use: No History of Substance Use: reports: Heroin - Smoking History Smoking history: Current some day smoker Have you smoked in the past 12 months: Yes Aproximately how many cigarettes per day: 5 Home Medications - Allergies Allergies/Adverse Reactions: Allergies Allergy/AdvReac Type Severity Reaction Status Date / Time No Known Allergies Allergy Verified 06/02/19 16:02 - Home Medications Home Medications: Ambulatory Orders Methadone [Dolophine -] 110 mg PO DAILY 06/02/19 Quetiapine Fumarate [Seroquel] 100 tab PO DAILY 06/02/19 Physical Exam Vital Signs: Vital Signs Temperature 97.8 F 06/04/19 14:00 Pulse Rate 71 06/04/19 14:00 Respiratory Rate 20 06/04/19 14:00 Blood Pressure 138/85 06/04/19 14:00 O2 Sat by Pulse Oximetry (%) 99 06/04/19 09:00 Labs: CBC, BMP 06/04/19 06:00 06/04/19 06:00
[2019-06-04] MEDS ORDERED: PIPERACILLIN/TAZOBACTAM 3.375 GM VIAL IVPB ONE (17:00)
[2019-06-04] MEDS ORDERED: DEXTROSE 5%-WATER - 50 ML IVPB ONE (17:01)
[2019-06-04] MEDS: PIPERACILLIN/TAZOB 3.375 GM 3.375 GM in DEXTROSE 5%-WATER - 50 ML IVPB SCH (17:26)
--- NOTE | 2019-06-04 18:27 | PN ---
Progress Note, Physician - Current Medication List Current Medications: Active Medications Acetaminophen (Tylenol -) 650 mg PO Q6H PRN PRN Reason: FEVER Heparin Sodium (Porcine) (Heparin -) 5,000 unit SQ BID [facility] Last Admin: 06/04/19 10:19 Dose: 5,000 unit Piperacillin Sod/Tazobactam (Sod 3.375 gm/ Dextrose) 50 mls @ 100 mls/hr IVPB Q8H-IV [facility]; Protocol Last Admin: 06/04/19 17:26 Dose: 100 mls/hr Methadone HCl 80 mg/ Methadone (HCl 30 mg) 110 mg PO DAILY@0600 [facility] Last Admin: 06/04/19 10:57 Dose: 110 mg Quetiapine Fumarate (Seroquel -) 100 mg PO DAILY [facility] Last Admin: 06/04/19 10:19 Dose: 100 mg - Objective Vital Signs: Vital Signs Temperature 97.8 F 06/04/19 14:00 Pulse Rate 71 06/04/19 14:00 Respiratory Rate 20 06/04/19 14:00 Blood Pressure 138/85 06/04/19 14:00 O2 Sat by Pulse Oximetry (%) 99 06/04/19 09:00 Constitutional: Yes: No Distress HENT: Yes: Atraumatic Neck: Yes: Supple Cardiovascular: Yes: Regular Rate and Rhythm Respiratory: Yes: CTA Bilaterally Gastrointestinal: Yes: Normal Bowel Sounds Extremities: Yes: WNL Edema: No Neurological: Yes: Alert, Oriented Labs: CBC, BMP 06/04/19 06:00 06/04/19 06:00 INR, PTT INR 1.17 (0.83-1.09) H 06/02/19 20:55 Problem List - Problems (1) Altered mental status Assessment/Plan: better now Code(s): R41.82 - ALTERED MENTAL STATUS, UNSPECIFIED (2) Nephrostomy tube displaced Assessment/Plan: fixed Code(s): T83.022A - DISPLACEMENT OF NEPHROSTOMY CATHETER, INITIAL ENCOUNTER (3) Leukocytosis Code(s): D72.829 - ELEVATED WHITE BLOOD CELL COUNT, UNSPECIFIED Qualifiers: Leukocytosis type: unspecified Qualified Code(s): D72.829 - Elevated white blood cell count, unspecified (4) Substance abuse Code(s): F19.10 - OTHER PSYCHOACTIVE SUBSTANCE ABUSE, UNCOMPLICATED (5) UTI (urinary tract infection) Assessment/Plan: on abx cxs pending Code(s): N39.0 - URINARY TRACT INFECTION, SITE NOT SPECIFIED
[2019-06-05] MEDS ORDERED: DEXTROSE 5%-WATER - 50 ML IVPB ONE ×3 (01:28→16:57)
[2019-06-05] MEDS ORDERED: PIPERACILLIN/TAZOBACTAM 3.375 GM VIAL IVPB ONE ×3 (01:28→16:57)
[2019-06-05] MEDS: PIPERACILLIN/TAZOB 3.375 GM 3.375 GM in DEXTROSE 5%-WATER - 50 ML IVPB SCH ×3 (01:43→17:11)
[2019-06-05] MEDS ORDERED: METHADONE HCL 40 MG DISPERSABLE TABLET ONE (05:34)
[2019-06-05] MEDS ORDERED: METHADONE HCL 10 MG TABLET ONE (05:35)
[2019-06-05] MEDS: METHADONE 80 MG, METHADONE 30 MG PO SCH (06:37)
--- NOTE | 2019-06-05 10:07 | PN ---
Progress Note, Physician History of Present Illness: Denies fevers or chills, leukocytosis improving. - Current Medication List Current Medications: Active Medications Acetaminophen (Tylenol -) 650 mg PO Q6H PRN PRN Reason: FEVER Last Admin: 06/05/19 08:36 Dose: 650 mg Heparin Sodium (Porcine) (Heparin -) 5,000 unit SQ BID [facility] Last Admin: 06/04/19 22:08 Dose: 5,000 unit Piperacillin Sod/Tazobactam (Sod 3.375 gm/ Dextrose) 50 mls @ 100 mls/hr IVPB Q8H-IV [facility]; Protocol Last Admin: 06/05/19 01:43 Dose: 100 mls/hr Methadone HCl 80 mg/ Methadone (HCl 30 mg) 110 mg PO DAILY@0600 [facility] Last Admin: 06/05/19 06:37 Dose: 110 mg Quetiapine Fumarate (Seroquel -) 100 mg PO DAILY [facility] Last Admin: 06/04/19 10:19 Dose: 100 mg - Objective Vital Signs: Vital Signs Temperature 98.0 F 06/05/19 02:00 Pulse Rate 73 06/05/19 02:00 Respiratory Rate 18 06/05/19 02:00 Blood Pressure 134/84 06/05/19 02:00 O2 Sat by Pulse Oximetry (%) 100 06/04/19 21:00 Constitutional: Yes: No Distress, Calm Neck: Yes: Supple Cardiovascular: Yes: Regular Rate and Rhythm Respiratory: Yes: Regular, Diminished Gastrointestinal: Yes: Normal Bowel Sounds, Soft Edema: No Labs: CBC, BMP 06/04/19 06:00 06/04/19 06:00 INR, PTT INR 1.17 (0.83-1.09) H 06/02/19 20:55 - ....Imaging EKG: Report Reviewed (Tele: No events) Problem List - Problems (1) Leukocytosis Code(s): D72.829 - ELEVATED WHITE BLOOD CELL COUNT, UNSPECIFIED Qualifiers: Leukocytosis type: unspecified Qualified Code(s): D72.829 - Elevated white blood cell count, unspecified (2) Nephrostomy tube displaced Code(s): T83.022A - DISPLACEMENT OF NEPHROSTOMY CATHETER, INITIAL ENCOUNTER (3) Substance abuse Code(s): F19.10 - OTHER PSYCHOACTIVE SUBSTANCE ABUSE, UNCOMPLICATED Assessment/Plan 1. Noncompliance due to social situation 2. Nephrostomy dislodgement post replacement 3. Altered mental status, resolved 4. History of nephrolithiasis and recurrent UTIs 5. History of substance abuse currently on Methadone 6. Leukocytosis improving PLAN: 1. ID input to follow to see if he needs empiric antibiotics and duration 2. volunteer services specialist for placement 3. No need for further cardiac evaluation or medications 4. DVT prophylaxis, d/c telemetry
[2019-06-05] MEDS ORDERED: QUEtiapine FUMARATE 50 MG TABLET ONE (10:18)
[2019-06-05] MEDS: HEPARIN NA (PORCINE) 5,000 UNITS/ML 1ML VIAL SQ SCH ×2 (10:31→21:27)
[2019-06-05] MEDS: QUEtiapine FUMARATE 100 MG TABLET (FP) PO SCH (10:32)
--- NOTE | 2019-06-05 13:54 | PN ---
Progress Note, Physician History of Present Illness: patient stable feels better - Current Medication List Current Medications: Active Medications Acetaminophen (Tylenol -) 650 mg PO Q6H PRN PRN Reason: FEVER Heparin Sodium (Porcine) (Heparin -) 5,000 unit SQ BID [facility] Piperacillin Sod/Tazobactam (Sod 3.375 gm/ Dextrose) 50 mls @ 100 mls/hr IVPB Q8H-IV [facility]; Protocol Methadone HCl 80 mg/ Methadone (HCl 30 mg) 110 mg PO DAILY@0600 [facility] Quetiapine Fumarate (Seroquel -) 100 mg PO DAILY [facility] - Objective Vital Signs: Vital Signs Temperature 97.9 F 06/05/19 13:27 Pulse Rate 70 06/05/19 13:27 Respiratory Rate 18 06/05/19 13:27 Blood Pressure 118/72 06/05/19 13:27 O2 Sat by Pulse Oximetry (%) 98 06/05/19 09:00 Constitutional: Yes: No Distress, Calm Cardiovascular: Yes: Regular Rate and Rhythm Respiratory: Yes: Regular, CTA Bilaterally Gastrointestinal: Yes: Normal Bowel Sounds, Soft Musculoskeletal: Yes: WNL Extremities: Yes: WNL Neurological: Yes: Alert, Oriented Labs: CBC, BMP 06/04/19 06:00 06/04/19 06:00 INR, PTT INR 1.17 (0.83-1.09) H 06/02/19 20:55 Assessment/Plan Problem List - Problems (1) Leukocytosis Code(s): D72.829 - ELEVATED WHITE BLOOD CELL COUNT, UNSPECIFIED Qualifiers: Leukocytosis type: unspecified Qualified Code(s): D72.829 - Elevated white blood cell count, unspecified (2) Nephrostomy tube displaced Code(s): T83.022A - DISPLACEMENT OF NEPHROSTOMY CATHETER, INITIAL ENCOUNTER (3) Substance abuse Code(s): F19.10 - OTHER PSYCHOACTIVE SUBSTANCE ABUSE, UNCOMPLICATED 4 uti plan continue abx await for identification of the organism rest as per the team
--- NOTE | 2019-06-05 18:30 | PN ---
Progress Note, Physician - Current Medication List Current Medications: Active Medications Acetaminophen (Tylenol -) 650 mg PO Q6H PRN PRN Reason: FEVER Heparin Sodium (Porcine) (Heparin -) 5,000 unit SQ BID [facility] Piperacillin Sod/Tazobactam (Sod 3.375 gm/ Dextrose) 50 mls @ 100 mls/hr IVPB Q8H-IV [facility]; Protocol Last Admin: 06/05/19 17:11 Dose: 100 mls/hr Methadone HCl 80 mg/ Methadone (HCl 30 mg) 110 mg PO DAILY@0600 [facility] Quetiapine Fumarate (Seroquel -) 100 mg PO DAILY [facility] - Objective Vital Signs: Vital Signs Temperature 98.0 F 06/05/19 18:00 Pulse Rate 94 H 06/05/19 18:00 Respiratory Rate 20 06/05/19 18:00 Blood Pressure 134/81 06/05/19 18:00 O2 Sat by Pulse Oximetry (%) 98 06/05/19 09:00 Constitutional: Yes: No Distress HENT: Yes: Atraumatic Neck: Yes: Supple Cardiovascular: Yes: Regular Rate and Rhythm Respiratory: Yes: CTA Bilaterally Gastrointestinal: Yes: Normal Bowel Sounds Extremities: Yes: WNL Edema: No Neurological: Yes: Alert, Oriented Labs: CBC, BMP 06/04/19 06:00 06/04/19 06:00 INR, PTT INR 1.17 (0.83-1.09) H 06/02/19 20:55 Problem List - Problems (1) Altered mental status Assessment/Plan: better now Code(s): R41.82 - ALTERED MENTAL STATUS, UNSPECIFIED (2) Nephrostomy tube displaced Assessment/Plan: fixed Code(s): T83.022A - DISPLACEMENT OF NEPHROSTOMY CATHETER, INITIAL ENCOUNTER (3) Leukocytosis Code(s): D72.829 - ELEVATED WHITE BLOOD CELL COUNT, UNSPECIFIED Qualifiers: Leukocytosis type: unspecified Qualified Code(s): D72.829 - Elevated white blood cell count, unspecified (4) Substance abuse Code(s): F19.10 - OTHER PSYCHOACTIVE SUBSTANCE ABUSE, UNCOMPLICATED (5) UTI (urinary tract infection) Assessment/Plan: on abx cxs pending Code(s): N39.0 - URINARY TRACT INFECTION, SITE NOT SPECIFIED
[2019-06-05] MEDS: ACETAMINOPHEN 325 MG TABLET (FP) PO PRN (18:46)
[2019-06-06] MEDS ORDERED: DEXTROSE 5%-WATER - 50 ML IVPB ONE ×3 (00:51→15:34)
[2019-06-06] MEDS ORDERED: PIPERACILLIN/TAZOBACTAM 3.375 GM VIAL IVPB ONE ×2 (00:51→09:17)
[2019-06-06] MEDS: PIPERACILLIN/TAZOB 3.375 GM 3.375 GM in DEXTROSE 5%-WATER - 50 ML IVPB SCH ×2 (01:10→09:55)
[2019-06-06] MEDS ORDERED: METHADONE 80 MG, METHADONE 30 MG PO ONE (08:00)
[2019-06-06] MEDS ORDERED: METHADONE HCL 40 MG DISPERSABLE TABLET ONE (08:07)
[2019-06-06] MEDS ORDERED: METHADONE HCL 10 MG TABLET ONE (08:07)
[2019-06-06] MEDS ORDERED: QUEtiapine FUMARATE 25 MG TABLET (FP) ONE (09:17)
--- NOTE | 2019-06-06 09:48 | PN ---
Progress Note, Physician History of Present Illness: Denies fevers or chills, leukocytosis improving. - Current Medication List Current Medications: Active Medications Acetaminophen (Tylenol -) 650 mg PO Q6H PRN PRN Reason: FEVER Last Admin: 06/05/19 18:46 Dose: 650 mg Heparin Sodium (Porcine) (Heparin -) 5,000 unit SQ BID [facility] Last Admin: 06/05/19 21:27 Dose: 5,000 unit Piperacillin Sod/Tazobactam (Sod 3.375 gm/ Dextrose) 50 mls @ 100 mls/hr IVPB Q8H-IV [facility]; Protocol Last Admin: 06/06/19 01:10 Dose: 100 mls/hr Methadone HCl 80 mg/ Methadone (HCl 30 mg) 110 mg PO DAILY@0600 [facility] Quetiapine Fumarate (Seroquel -) 100 mg PO DAILY [facility] - Objective Vital Signs: Vital Signs Temperature 99.3 F 06/05/19 22:00 Pulse Rate 73 06/05/19 22:00 Respiratory Rate 17 06/05/19 22:00 Blood Pressure 126/72 06/05/19 22:00 O2 Sat by Pulse Oximetry (%) 99 06/05/19 21:00 Constitutional: Yes: No Distress, Calm, Thin Neck: Yes: Supple Cardiovascular: Yes: Regular Rate and Rhythm Respiratory: Yes: Regular, CTA Bilaterally Gastrointestinal: Yes: Normal Bowel Sounds, Soft Edema: No Labs: CBC, BMP 06/04/19 06:00 06/04/19 06:00 INR, PTT INR 1.17 (0.83-1.09) H 06/02/19 20:55 Problem List - Problems (1) Leukocytosis Code(s): D72.829 - ELEVATED WHITE BLOOD CELL COUNT, UNSPECIFIED Qualifiers: Leukocytosis type: unspecified Qualified Code(s): D72.829 - Elevated white blood cell count, unspecified (2) Nephrostomy tube displaced Code(s): T83.022A - DISPLACEMENT OF NEPHROSTOMY CATHETER, INITIAL ENCOUNTER (3) Substance abuse Code(s): F19.10 - OTHER PSYCHOACTIVE SUBSTANCE ABUSE, UNCOMPLICATED Assessment/Plan 1. Noncompliance due to social situation 2. Nephrostomy dislodgement post replacement 3. Altered mental status, resolved 4. History of nephrolithiasis and recurrent UTIs 5. History of substance abuse currently on Methadone 6. Leukocytosis improving PLAN: 1. Empiric antibiotics course per C&S 2. licensing services clerk for placement 3. No need for further cardiac evaluation or medications 4. DVT prophylaxis
[2019-06-06] MEDS: HEPARIN NA (PORCINE) 5,000 UNITS/ML 1ML VIAL SQ SCH ×2 (09:53→21:03)
[2019-06-06] MEDS: ACETAMINOPHEN 325 MG TABLET (FP) PO PRN ×2 (09:53→20:14)
[2019-06-06] MEDS: QUEtiapine FUMARATE 50 MG TABLET PO SCH (09:54)
--- NOTE | 2019-06-06 13:30 | PN ---
Progress Note, Physician History of Present Illness: stable no new issues urine looks clear - Current Medication List Current Medications: Active Medications Acetaminophen (Tylenol -) 650 mg PO Q6H PRN PRN Reason: FEVER Last Admin: 06/06/19 09:53 Dose: 650 mg Heparin Sodium (Porcine) (Heparin -) 5,000 unit SQ BID [facility] Last Admin: 06/06/19 09:53 Dose: 5,000 unit Piperacillin Sod/Tazobactam (Sod 3.375 gm/ Dextrose) 50 mls @ 100 mls/hr IVPB Q8H-IV [facility]; Protocol Last Admin: 06/06/19 09:55 Dose: 100 mls/hr Methadone HCl 80 mg/ Methadone (HCl 30 mg) 110 mg PO DAILY@0600 [facility] Quetiapine Fumarate (Seroquel -) 100 mg PO DAILY [facility] Last Admin: 06/06/19 09:54 Dose: 100 mg - Objective Vital Signs: Vital Signs Temperature 99.3 F 06/05/19 22:00 Pulse Rate 73 06/05/19 22:00 Respiratory Rate 17 06/05/19 22:00 Blood Pressure 126/72 06/05/19 22:00 O2 Sat by Pulse Oximetry (%) 99 06/05/19 21:00 Constitutional: Yes: No Distress, Calm Cardiovascular: Yes: S1, S2 Respiratory: Yes: Regular, CTA Bilaterally Gastrointestinal: Yes: Normal Bowel Sounds, Soft Genitourinary: Yes: Other (nephrostomy tube in place) Musculoskeletal: Yes: WNL Extremities: Yes: WNL Neurological: Yes: Alert, Oriented Psychiatric: Yes: Alert, Oriented Labs: CBC, BMP 06/04/19 06:00 06/04/19 06:00 INR, PTT INR 1.17 (0.83-1.09) H 06/02/19 20:55 Assessment/Plan Problem List - Problems (1) Leukocytosis Code(s): D72.829 - ELEVATED WHITE BLOOD CELL COUNT, UNSPECIFIED Qualifiers: Leukocytosis type: unspecified Qualified Code(s): D72.829 - Elevated white blood cell count, unspecified (2) Nephrostomy tube displaced Code(s): T83.022A - DISPLACEMENT OF NEPHROSTOMY CATHETER, INITIAL ENCOUNTER (3) Substance abuse Code(s): F19.10 - OTHER PSYCHOACTIVE SUBSTANCE ABUSE, UNCOMPLICATED 4 uti plan continue abx will change to ceftriaxone rest as per the team
[2019-06-06] MEDS ORDERED: cefTRIAXone SODIUM 1 GM VIAL ONE (15:34)
[2019-06-06] MEDS: CEFTRIAXONE 1 GM in DEXTROSE 5%-WATER - 50 ML IVPB SCH (16:18)
--- NOTE | 2019-06-06 18:41 | PN ---
Progress Note, Physician - Current Medication List Current Medications: Active Medications Acetaminophen (Tylenol -) 650 mg PO Q6H PRN PRN Reason: FEVER Last Admin: 06/06/19 09:53 Dose: 650 mg Heparin Sodium (Porcine) (Heparin -) 5,000 unit SQ BID [facility] Last Admin: 06/06/19 09:53 Dose: 5,000 unit Ceftriaxone Sodium 1 gm/ (Dextrose) 50 mls @ 100 mls/hr IVPB DAILY [facility]; Protocol Last Admin: 06/06/19 16:18 Dose: 100 mls/hr Methadone HCl 80 mg/ Methadone (HCl 30 mg) 110 mg PO DAILY@0600 [facility] Quetiapine Fumarate (Seroquel -) 100 mg PO DAILY [facility] Last Admin: 06/06/19 09:54 Dose: 100 mg - Objective Vital Signs: Vital Signs Temperature 98.4 F 06/06/19 18:25 Pulse Rate 88 06/06/19 18:25 Respiratory Rate 20 06/06/19 18:25 Blood Pressure 113/88 06/06/19 18:25 O2 Sat by Pulse Oximetry (%) 99 06/06/19 09:00 Constitutional: Yes: No Distress HENT: Yes: Atraumatic Neck: Yes: Supple Cardiovascular: Yes: Regular Rate and Rhythm Respiratory: Yes: CTA Bilaterally Gastrointestinal: Yes: Normal Bowel Sounds Extremities: Yes: WNL Edema: No Neurological: Yes: Alert, Oriented Labs: CBC, BMP 06/04/19 06:00 06/04/19 06:00 INR, PTT INR 1.17 (0.83-1.09) H 06/02/19 20:55 Problem List - Problems (1) Altered mental status Assessment/Plan: better now Code(s): R41.82 - ALTERED MENTAL STATUS, UNSPECIFIED (2) Nephrostomy tube displaced Assessment/Plan: fixed Code(s): T83.022A - DISPLACEMENT OF NEPHROSTOMY CATHETER, INITIAL ENCOUNTER (3) Leukocytosis Code(s): D72.829 - ELEVATED WHITE BLOOD CELL COUNT, UNSPECIFIED Qualifiers: Leukocytosis type: unspecified Qualified Code(s): D72.829 - Elevated white blood cell count, unspecified (4) Substance abuse Code(s): F19.10 - OTHER PSYCHOACTIVE SUBSTANCE ABUSE, UNCOMPLICATED (5) UTI (urinary tract infection) Assessment/Plan: on abx cxs noted Code(s): N39.0 - URINARY TRACT INFECTION, SITE NOT SPECIFIED
[2019-06-07] MEDS ORDERED: METHADONE HCL 10 MG TABLET ONE (06:00)
[2019-06-07] MEDS ORDERED: METHADONE HCL 40 MG DISPERSABLE TABLET ONE (06:01)
[2019-06-07] MEDS: METHADONE 80 MG, METHADONE 30 MG PO SCH (06:05)
--- NOTE | 2019-06-07 09:45 | PN ---
Progress Note, Physician History of Present Illness: Denies fevers or chills, leukocytosis improving. - Current Medication List Current Medications: Active Medications Acetaminophen (Tylenol -) 650 mg PO Q6H PRN PRN Reason: FEVER Last Admin: 06/06/19 20:14 Dose: 650 mg Heparin Sodium (Porcine) (Heparin -) 5,000 unit SQ BID [facility] Last Admin: 06/06/19 21:03 Dose: 5,000 unit Ceftriaxone Sodium 1 gm/ (Dextrose) 50 mls @ 100 mls/hr IVPB DAILY [facility]; Protocol Last Admin: 06/06/19 16:18 Dose: 100 mls/hr Methadone HCl 80 mg/ Methadone (HCl 30 mg) 110 mg PO DAILY@0600 [facility] Last Admin: 06/07/19 06:05 Dose: 110 mg Quetiapine Fumarate (Seroquel -) 100 mg PO DAILY [facility] Last Admin: 06/06/19 09:54 Dose: 100 mg - Objective Vital Signs: Vital Signs Temperature 98.7 F 06/07/19 09:04 Pulse Rate 84 06/07/19 09:04 Respiratory Rate 18 06/07/19 09:04 Blood Pressure 119/79 06/07/19 09:04 O2 Sat by Pulse Oximetry (%) 97 06/07/19 09:00 Constitutional: Yes: No Distress, Calm Neck: Yes: Supple Cardiovascular: Yes: Regular Rate and Rhythm Respiratory: Yes: Regular, CTA Bilaterally Gastrointestinal: Yes: Normal Bowel Sounds, Soft Edema: No Labs: CBC, BMP 06/04/19 06:00 06/04/19 06:00 INR, PTT INR 1.17 (0.83-1.09) H 06/02/19 20:55 Problem List - Problems (1) Leukocytosis Code(s): D72.829 - ELEVATED WHITE BLOOD CELL COUNT, UNSPECIFIED Qualifiers: Leukocytosis type: unspecified Qualified Code(s): D72.829 - Elevated white blood cell count, unspecified (2) Nephrostomy tube displaced Code(s): T83.022A - DISPLACEMENT OF NEPHROSTOMY CATHETER, INITIAL ENCOUNTER (3) Substance abuse Code(s): F19.10 - OTHER PSYCHOACTIVE SUBSTANCE ABUSE, UNCOMPLICATED Assessment/Plan 1. Noncompliance due to social situation 2. Nephrostomy dislodgement post replacement 3. Altered mental status, resolved 4. History of nephrolithiasis and recurrent UTIs 5. History of substance abuse currently on Methadone 6. Leukocytosis improving PLAN: 1. Empiric antibiotics course per C&S 2. guest services officer for placement 3. No need for further cardiac evaluation or medications 4. DVT prophylaxis
[2019-06-07] MEDS ORDERED: QUEtiapine FUMARATE 25 MG TABLET (FP) ONE ×2 (10:30→13:11)
[2019-06-07] MEDS ORDERED: cefTRIAXone SODIUM 1 GM VIAL ONE (10:31)
[2019-06-07] MEDS ORDERED: DEXTROSE 5%-WATER - 50 ML IVPB ONE (10:31)
[2019-06-07] MEDS: HEPARIN NA (PORCINE) 5,000 UNITS/ML 1ML VIAL SQ SCH ×2 (10:34→21:08)
[2019-06-07] MEDS: CEFTRIAXONE 1 GM in DEXTROSE 5%-WATER - 50 ML IVPB SCH (10:34)
[2019-06-07] MEDS: QUEtiapine FUMARATE 50 MG TABLET PO SCH (13:13)
[2019-06-07] MEDS: ACETAMINOPHEN 325 MG TABLET (FP) PO PRN (15:15)
--- NOTE | 2019-06-07 16:36 | PN ---
Progress Note, Physician - Current Medication List Current Medications: Active Medications Acetaminophen (Tylenol -) 650 mg PO Q6H PRN PRN Reason: FEVER Last Admin: 06/07/19 15:15 Dose: 650 mg Heparin Sodium (Porcine) (Heparin -) 5,000 unit SQ BID [facility] Last Admin: 06/07/19 10:34 Dose: 5,000 unit Ceftriaxone Sodium 1 gm/ (Dextrose) 50 mls @ 100 mls/hr IVPB DAILY [facility]; Protocol Last Admin: 06/07/19 10:34 Dose: 100 mls/hr Methadone HCl 80 mg/ Methadone (HCl 30 mg) 110 mg PO DAILY@0600 [facility] Last Admin: 06/07/19 06:05 Dose: 110 mg Quetiapine Fumarate (Seroquel -) 100 mg PO DAILY [facility] Last Admin: 06/07/19 13:13 Dose: 100 mg - Objective Vital Signs: Vital Signs Temperature 98.1 F 06/07/19 13:37 Pulse Rate 77 06/07/19 13:37 Respiratory Rate 20 06/07/19 13:37 Blood Pressure 137/90 06/07/19 13:37 O2 Sat by Pulse Oximetry (%) 97 06/07/19 09:00 Constitutional: Yes: No Distress HENT: Yes: Atraumatic Neck: Yes: Supple Cardiovascular: Yes: Regular Rate and Rhythm Respiratory: Yes: CTA Bilaterally Gastrointestinal: Yes: Normal Bowel Sounds Extremities: Yes: WNL Edema: No Peripheral Pulses WNL: Yes Neurological: Yes: Alert, Oriented Labs: CBC, BMP 06/04/19 06:00 06/04/19 06:00 INR, PTT INR 1.17 (0.83-1.09) H 06/02/19 20:55 Problem List - Problems (1) Altered mental status Assessment/Plan: wnl Code(s): R41.82 - ALTERED MENTAL STATUS, UNSPECIFIED (2) Nephrostomy tube displaced Assessment/Plan: fixed Code(s): T83.022A - DISPLACEMENT OF NEPHROSTOMY CATHETER, INITIAL ENCOUNTER (3) Leukocytosis Code(s): D72.829 - ELEVATED WHITE BLOOD CELL COUNT, UNSPECIFIED Qualifiers: Leukocytosis type: unspecified Qualified Code(s): D72.829 - Elevated white blood cell count, unspecified (4) Substance abuse Code(s): F19.10 - OTHER PSYCHOACTIVE SUBSTANCE ABUSE, UNCOMPLICATED (5) UTI (urinary tract infection) Assessment/Plan: on abx cxs noted Code(s): N39.0 - URINARY TRACT INFECTION, SITE NOT SPECIFIED
--- NOTE | 2019-06-07 17:55 | PN ---
Progress Note, Physician History of Present Illness: Pt seen and examined. Events noted. He states he is feeling better, remains afebrile. Has no new specific complaints. - Current Medication List Current Medications: Active Medications Acetaminophen (Tylenol -) 650 mg PO Q6H PRN PRN Reason: FEVER Last Admin: 06/07/19 15:15 Dose: 650 mg Heparin Sodium (Porcine) (Heparin -) 5,000 unit SQ BID [facility] Last Admin: 06/07/19 10:34 Dose: 5,000 unit Ceftriaxone Sodium 1 gm/ (Dextrose) 50 mls @ 100 mls/hr IVPB DAILY [facility]; Protocol Last Admin: 06/07/19 10:34 Dose: 100 mls/hr Methadone HCl 80 mg/ Methadone (HCl 30 mg) 110 mg PO DAILY@0600 [facility] Last Admin: 06/07/19 06:05 Dose: 110 mg Quetiapine Fumarate (Seroquel -) 100 mg PO DAILY [facility] Last Admin: 06/07/19 13:13 Dose: 100 mg - Objective Vital Signs: Vital Signs Temperature 98.1 F 06/07/19 13:37 Pulse Rate 77 06/07/19 13:37 Respiratory Rate 20 06/07/19 13:37 Blood Pressure 137/90 06/07/19 13:37 O2 Sat by Pulse Oximetry (%) 97 06/07/19 09:00 Constitutional: Yes: No Distress, Calm Cardiovascular: Yes: Regular Rate and Rhythm Respiratory: Yes: Regular Gastrointestinal: Yes: Normal Bowel Sounds, Soft Genitourinary: Yes: Other (Rt nephrostomy) Extremities: Yes: WNL Integumentary: Yes: WNL Neurological: Yes: Alert, Oriented Labs: CBC, BMP 06/04/19 06:00 06/04/19 06:00 INR, PTT INR 1.17 (0.83-1.09) H 06/02/19 20:55 Microbiology 06/02/19 20:50 Blood - Peripheral Venous Blood Culture - Preliminary NO GROWTH OBTAINED AFTER 96 HOURS, INCUBATION TO CONTINUE FOR 1 DAYS. 06/02/19 20:50 Blood - Peripheral Venous Blood Culture - Preliminary NO GROWTH OBTAINED AFTER 96 HOURS, INCUBATION TO CONTINUE FOR 1 DAYS. 06/04/19 07:00 Urine - Urine Nephrostomy Tube Right Urine Culture - Final Escherichia Coli - ....Imaging Chest X-ray: Report Reviewed Cat Scan: Report Reviewed Problem List - Problems (1) Altered mental status Code(s): R41.82 - ALTERED MENTAL STATUS, UNSPECIFIED (2) Leukocytosis Code(s): D72.829 - ELEVATED WHITE BLOOD CELL COUNT, UNSPECIFIED Qualifiers: Leukocytosis type: unspecified Qualified Code(s): D72.829 - Elevated white blood cell count, unspecified (3) Nephrostomy tube displaced Code(s): T83.022A - DISPLACEMENT OF NEPHROSTOMY CATHETER, INITIAL ENCOUNTER (4) Substance abuse Code(s): F19.10 - OTHER PSYCHOACTIVE SUBSTANCE ABUSE, UNCOMPLICATED (5) UTI (urinary tract infection) Code(s): N39.0 - URINARY TRACT INFECTION, SITE NOT SPECIFIED Assessment/Plan UTI Displaced nephrostomy tube s/p replacement Leukocytosis Substance abuse -- Pt clinically stable -- continue IV antibiotics as discussed -- follow up
[2019-06-08] MEDS ORDERED: METHADONE HCL 10 MG TABLET ONE (06:33)
[2019-06-08] MEDS ORDERED: METHADONE HCL 40 MG DISPERSABLE TABLET ONE (06:35)
[2019-06-08] MEDS: METHADONE 80 MG, METHADONE 30 MG PO SCH (06:36)
[2019-06-08] MEDS: ACETAMINOPHEN 325 MG TABLET (FP) PO PRN ×2 (06:39→20:50)
[2019-06-08] MEDS ORDERED: QUEtiapine FUMARATE 25 MG TABLET (FP) ONE (10:31)
[2019-06-08] MEDS ORDERED: cefTRIAXone SODIUM 1 GM VIAL ONE (10:32)
[2019-06-08] MEDS ORDERED: DEXTROSE 5%-WATER - 50 ML IVPB ONE (10:32)
[2019-06-08] MEDS: HEPARIN NA (PORCINE) 5,000 UNITS/ML 1ML VIAL SQ SCH ×2 (10:33→21:00)
[2019-06-08] MEDS: QUEtiapine FUMARATE 50 MG TABLET PO SCH (10:34)
[2019-06-08] MEDS: CEFTRIAXONE 1 GM in DEXTROSE 5%-WATER - 50 ML IVPB SCH (10:34)
--- NOTE | 2019-06-08 15:02 | PN ---
Progress Note, Physician History of Present Illness: No new events. Pt c/o mild discomfort at nephrostomy site but no other complaints. - Current Medication List Current Medications: Active Medications Acetaminophen (Tylenol -) 650 mg PO Q6H PRN PRN Reason: FEVER Last Admin: 06/08/19 06:39 Dose: 650 mg Heparin Sodium (Porcine) (Heparin -) 5,000 unit SQ BID [facility] Last Admin: 06/08/19 10:33 Dose: 5,000 unit Ceftriaxone Sodium 1 gm/ (Dextrose) 50 mls @ 100 mls/hr IVPB DAILY [facility]; Protocol Last Admin: 06/08/19 10:34 Dose: 100 mls/hr Methadone HCl 80 mg/ Methadone (HCl 30 mg) 110 mg PO DAILY@0600 [facility] Last Admin: 06/08/19 06:36 Dose: 110 mg Quetiapine Fumarate (Seroquel -) 100 mg PO DAILY [facility] Last Admin: 06/08/19 10:34 Dose: 100 mg - Objective Vital Signs: Vital Signs Temperature 97.7 F 06/08/19 13:56 Pulse Rate 74 06/08/19 13:56 Respiratory Rate 20 06/08/19 13:56 Blood Pressure 125/84 06/08/19 13:56 O2 Sat by Pulse Oximetry (%) 99 06/07/19 21:00 Constitutional: Yes: No Distress, Calm Cardiovascular: Yes: Regular Rate and Rhythm Respiratory: Yes: Regular Gastrointestinal: Yes: Normal Bowel Sounds, Soft Genitourinary: Yes: Other (Rt nephrostomy , dressing intact) Integumentary: Yes: WNL Neurological: Yes: Alert, Oriented Labs: CBC, BMP 06/04/19 06:00 06/04/19 06:00 INR, PTT INR 1.17 (0.83-1.09) H 06/02/19 20:55 Microbiology 06/02/19 20:50 Blood - Peripheral Venous Blood Culture - Final NO GROWTH AFTER 5 DAYS INCUBATION 06/02/19 20:50 Blood - Peripheral Venous Blood Culture - Final NO GROWTH AFTER 5 DAYS INCUBATION 06/04/19 07:00 Urine - Urine Nephrostomy Tube Right Urine Culture - Final Escherichia Coli Problem List - Problems (1) Altered mental status Code(s): R41.82 - ALTERED MENTAL STATUS, UNSPECIFIED (2) Leukocytosis Code(s): D72.829 - ELEVATED WHITE BLOOD CELL COUNT, UNSPECIFIED Qualifiers: Leukocytosis type: unspecified Qualified Code(s): D72.829 - Elevated white blood cell count, unspecified (3) Nephrostomy tube displaced Code(s): T83.022A - DISPLACEMENT OF NEPHROSTOMY CATHETER, INITIAL ENCOUNTER (4) Substance abuse Code(s): F19.10 - OTHER PSYCHOACTIVE SUBSTANCE ABUSE, UNCOMPLICATED (5) UTI (urinary tract infection) Code(s): N39.0 - URINARY TRACT INFECTION, SITE NOT SPECIFIED Assessment/Plan UTI Displaced nephrostomy tube s/p replacement Leukocytosis Substance abuse -- continue Ceftriaxone -- leukocytosis resolved -- follow up stable at this time
--- NOTE | 2019-06-08 18:42 | PDOC ---
Documentation entered by Julian Quintero SCRIBE, acting as scribe for Tri Mak MD. Tri Mak MD: This documentation has been prepared by the Leon galeana Daniel, SCRIBE, under my direction and personally reviewed by me in its entirety. I confirm that the documentation accurately reflects all work, treatment, procedures, and medical decision making performed by me. Attending Attestation - Resident Resident Name: JavadKelly - HPI HPI: 06/02/19 18:57 The patient is a 54 year old male with a past medical history of horseshoe kidney s/p nephrostomy tube brought in today by EMS for evaluation of altered mental status. Patient is a poor historian but states that he was sitting in front of someones house and that the police came. EMS reports finding the patient on the street. Patients only concern is the nephrostomy tube. Allergies: NKA - Physicial Exam PE: 06/02/19 18:57 GENERAL: Awake, alert, and fully oriented, in no acute distress. Patient is slightly confused and is unable to provide a clear history. HEAD: No signs of trauma EYES: PERRLA, EOMI, sclera anicteric, conjunctiva clear ENT: Auricles normal inspection, hearing grossly normal, nares patent, oropharynx clear without exudates. Moist mucosa NECK: Normal ROM, supple, no lymphadenopathy, JVD, or masses LUNGS: Breath sounds equal, clear to auscultation bilaterally. No wheezes, and no crackles HEART: Regular rate and rhythm, normal S1 and S2, no murmurs, rubs or gallops ABDOMEN: +nephrostomy tube in place actively draining urine. Soft, nontender, normoactive bowel sounds. No guarding, no rebound. No masses EXTREMITIES: Normal range of motion, no edema. No clubbing or cyanosis. No cords, erythema, or tenderness NEUROLOGICAL: Cranial nerves II through XII grossly intact. Normal speech, normal gait. Confused--poor historian. SKIN: Warm, Dry, normal turgor, no rashes or lesions noted. 06/08/19 18:39 - Medical Decision Making 06/08/19 18:40 Pt presents to the ED for altered mental status after being found down outside. Has nephostomy tube that is draining urine. Initial differential included metabolic derrangement, ingestion, intracranial mass or bleed, rhabdomyolysis. Will check labs and CT head, reassess. Will admit for altered mental status if work up is negative.
--- NOTE | 2019-06-08 19:53 | PN ---
Progress Note, Physician - Current Medication List Current Medications: Active Medications Acetaminophen (Tylenol -) 650 mg PO Q6H PRN PRN Reason: FEVER Last Admin: 06/08/19 06:39 Dose: 650 mg Heparin Sodium (Porcine) (Heparin -) 5,000 unit SQ BID [facility] Last Admin: 06/08/19 10:33 Dose: 5,000 unit Ceftriaxone Sodium 1 gm/ (Dextrose) 50 mls @ 100 mls/hr IVPB DAILY [facility]; Protocol Last Admin: 06/08/19 10:34 Dose: 100 mls/hr Methadone HCl 80 mg/ Methadone (HCl 30 mg) 110 mg PO DAILY@0600 [facility] Last Admin: 06/08/19 06:36 Dose: 110 mg Quetiapine Fumarate (Seroquel -) 100 mg PO DAILY [facility] Last Admin: 06/08/19 10:34 Dose: 100 mg - Objective Vital Signs: Vital Signs Temperature 98.2 F 06/08/19 18:00 Pulse Rate 83 06/08/19 18:00 Respiratory Rate 18 06/08/19 18:00 Blood Pressure 116/69 06/08/19 18:00 O2 Sat by Pulse Oximetry (%) 99 06/08/19 09:00 Constitutional: Yes: No Distress HENT: Yes: Atraumatic Neck: Yes: Supple Cardiovascular: Yes: Regular Rate and Rhythm Respiratory: Yes: CTA Bilaterally Gastrointestinal: Yes: Normal Bowel Sounds Extremities: Yes: WNL Edema: No Peripheral Pulses WNL: Yes Neurological: Yes: Alert, Oriented Labs: CBC, BMP 06/04/19 06:00 06/04/19 06:00 INR, PTT INR 1.17 (0.83-1.09) H 06/02/19 20:55 Problem List - Problems (1) Altered mental status Assessment/Plan: wnl Code(s): R41.82 - ALTERED MENTAL STATUS, UNSPECIFIED (2) Nephrostomy tube displaced Assessment/Plan: fixed Code(s): T83.022A - DISPLACEMENT OF NEPHROSTOMY CATHETER, INITIAL ENCOUNTER (3) Leukocytosis Assessment/Plan: resolved Code(s): D72.829 - ELEVATED WHITE BLOOD CELL COUNT, UNSPECIFIED Qualifiers: Leukocytosis type: unspecified Qualified Code(s): D72.829 - Elevated white blood cell count, unspecified (4) Substance abuse Code(s): F19.10 - OTHER PSYCHOACTIVE SUBSTANCE ABUSE, UNCOMPLICATED (5) UTI (urinary tract infection) Assessment/Plan: on abx cxs noted Code(s): N39.0 - URINARY TRACT INFECTION, SITE NOT SPECIFIED
[2019-06-09] MEDS ORDERED: METHADONE HCL 10 MG TABLET ONE (05:40)
[2019-06-09] MEDS ORDERED: METHADONE HCL 40 MG DISPERSABLE TABLET ONE (05:41)
[2019-06-09] MEDS: METHADONE 80 MG, METHADONE 30 MG PO SCH (05:47)
[2019-06-09] MEDS ORDERED: QUEtiapine FUMARATE 25 MG TABLET (FP) ONE (08:39)
[2019-06-09] MEDS ORDERED: cefTRIAXone SODIUM 1 GM VIAL ONE (08:40)
[2019-06-09] MEDS ORDERED: DEXTROSE 5%-WATER - 50 ML IVPB ONE (08:40)
[2019-06-09] MEDS: QUEtiapine FUMARATE 50 MG TABLET PO SCH (09:02)
[2019-06-09] MEDS: HEPARIN NA (PORCINE) 5,000 UNITS/ML 1ML VIAL SQ SCH ×2 (09:02→21:29)
[2019-06-09] MEDS: CEFTRIAXONE 1 GM in DEXTROSE 5%-WATER - 50 ML IVPB SCH (10:49)
--- NOTE | 2019-06-09 15:04 | PN ---
Progress Note, Physician History of Present Illness: Pt remains alert, afebrile, comfortable. Has no new complaints. - Current Medication List Current Medications: Active Medications Acetaminophen (Tylenol -) 650 mg PO Q6H PRN PRN Reason: FEVER Last Admin: 06/08/19 20:50 Dose: 650 mg Heparin Sodium (Porcine) (Heparin -) 5,000 unit SQ BID [facility] Last Admin: 06/09/19 09:02 Dose: 5,000 unit Ceftriaxone Sodium 1 gm/ (Dextrose) 50 mls @ 100 mls/hr IVPB DAILY [facility]; Protocol Last Admin: 06/09/19 10:49 Dose: 100 mls/hr Methadone HCl 80 mg/ Methadone (HCl 30 mg) 110 mg PO DAILY@0600 [facility] Last Admin: 06/09/19 05:47 Dose: 110 mg Quetiapine Fumarate (Seroquel -) 100 mg PO DAILY [facility] Last Admin: 06/09/19 09:02 Dose: 100 mg - Objective Vital Signs: Vital Signs Temperature 98.2 F 06/09/19 14:08 Pulse Rate 70 06/09/19 14:08 Respiratory Rate 20 06/09/19 14:08 Blood Pressure 117/78 06/09/19 14:08 O2 Sat by Pulse Oximetry (%) 100 06/09/19 09:00 Constitutional: Yes: No Distress, Calm Cardiovascular: Yes: Regular Rate and Rhythm Respiratory: Yes: CTA Bilaterally Gastrointestinal: Yes: Normal Bowel Sounds, Soft Genitourinary: Yes: Other (nephrostomy) Extremities: Yes: WNL Integumentary: Yes: WNL Neurological: Yes: Alert, Oriented Labs: CBC, BMP 06/04/19 06:00 06/04/19 06:00 INR, PTT INR 1.17 (0.83-1.09) H 06/02/19 20:55 Laboratory Tests 06/02/19 06/02/19 06/02/19 18:18 20:15 20:50 WBC 15.9 H RBC 4.76 Hgb 12.5 Hct 38.1 MCV 80.1 MCH 26.2 MCHC 32.7 RDW 17.4 H Plt Count 267 MPV 9.6 Absolute Neuts (auto) 11.5 H Neutrophils % 72.3 Lymphocytes % 19.7 Monocytes % 6.7 Eosinophils % 0.6 Basophils % 0.7 Nucleated RBC % 0 ESR PT with INR INR Sodium 139 Potassium 4.7 Chloride 101 Carbon Dioxide 27 Anion Gap 11 BUN 43.3 H Creatinine 1.3 Est GFR (CKD-EPI)AfAm 71.69 Est GFR (CKD-EPI)NonAf 61.86 Random Glucose 81 Lactic Acid Calcium 9.8 Total Bilirubin 0.8 AST 16 ALT 29 Alkaline Phosphatase 126 H Ammonia < 10.00 L Creatine Kinase Troponin I C-Reactive Protein Total Protein 7.7 Albumin 3.8 Vitamin B12 TSH Urine Color Urine Appearance Urine pH Ur Specific Fithian Urine Protein Urine Glucose (UA) Urine Ketones Urine Blood Urine Nitrite Urine Bilirubin Urine Urobilinogen Ur Leukocyte Esterase Urine WBC (Auto) Urine RBC (Auto) Urine Casts (Auto) U Pathogenic Cast Auto U Epithel Cells (Auto) Urine Bacteria (Auto) Salicylates 2.6 L Acetaminophen < 2.0 L Alcohol, Quantitative < 3.0 Acetone, Qual RPR Titer 06/02/19 06/02/19 06/02/19 20:50 20:50 20:55 WBC 12.8 H RBC 4.65 Hgb 12.2 Hct 37.3 MCV 80.1 MCH 26.3 MCHC 32.8 RDW 17.7 H Plt Count 304 MPV 9.1 Absolute Neuts (auto) 9.3 H Neutrophils % 72.3 Lymphocytes % 19.0 Monocytes % 6.8 Eosinophils % 1.2 D Basophils % 0.7 Nucleated RBC % 0 ESR PT with INR INR Sodium Potassium Chloride Carbon Dioxide Anion Gap BUN Creatinine Est GFR (CKD-EPI)AfAm Est GFR (CKD-EPI)NonAf Random Glucose Lactic Acid 1.3 Calcium Total Bilirubin AST ALT Alkaline Phosphatase Ammonia Creatine Kinase 73 Troponin I < 0.02 C-Reactive Protein Total Protein Albumin Vitamin B12 TSH Urine Color Urine Appearance Urine pH Ur Specific Fithian Urine Protein Urine Glucose (UA) Urine Ketones Urine Blood Urine Nitrite Urine Bilirubin Urine Urobilinogen Ur Leukocyte Esterase Urine WBC (Auto) Urine RBC (Auto) Urine Casts (Auto) U Pathogenic Cast Auto U Epithel Cells (Auto) Urine Bacteria (Auto) Salicylates Acetaminophen Alcohol, Quantitative Acetone, Qual Trace RPR Titer 06/02/19 06/03/19 06/03/19 20:55 01:51 01:51 WBC RBC Hgb Hct MCV MCH MCHC RDW Plt Count MPV Absolute Neuts (auto) Neutrophils % Lymphocytes % Monocytes % Eosinophils % Basophils % Nucleated RBC % ESR Cancelled PT with INR 13.80 H INR 1.17 H Sodium Potassium Chloride Carbon Dioxide Anion Gap BUN Creatinine Est GFR (CKD-EPI)AfAm Est GFR (CKD-EPI)NonAf Random Glucose Lactic Acid Calcium Total Bilirubin AST ALT Alkaline Phosphatase Ammonia Creatine Kinase 63 Troponin I < 0.02 C-Reactive Protein 1.5 H Total Protein Albumin Vitamin B12 TSH Urine Color Urine Appearance Urine pH Ur Specific Fithian Urine Protein Urine Glucose (UA) Urine Ketones Urine Blood Urine Nitrite Urine Bilirubin Urine Urobilinogen Ur Leukocyte Esterase Urine WBC (Auto) Urine RBC (Auto) Urine Casts (Auto) U Pathogenic Cast Auto U Epithel Cells (Auto) Urine Bacteria (Auto) Salicylates Acetaminophen Alcohol, Quantitative Acetone, Qual RPR Titer 06/03/19 06/03/19 06/04/19 01:52 03:22 06:00 WBC 10.1 H RBC 4.42 Hgb 11.8 Hct 35.3 L MCV 79.9 L MCH 26.7 MCHC 33.4 RDW 17.5 H Plt Count 241 D MPV 9.4 Absolute Neuts (auto) 7.1 Neutrophils % 70.4 Lymphocytes % 20.0 Monocytes % 7.9 Eosinophils % 1.0 Basophils % 0.7 Nucleated RBC % 0 ESR PT with INR INR Sodium Potassium Chloride Carbon Dioxide Anion Gap BUN Creatinine Est GFR (CKD-EPI)AfAm Est GFR (CKD-EPI)NonAf Random Glucose Lactic Acid Calcium Total Bilirubin AST ALT Alkaline Phosphatase Ammonia Creatine Kinase Troponin I C-Reactive Protein Total Protein Albumin Vitamin B12 603 TSH 1.01 Urine Color Urine Appearance Urine pH Ur Specific Fithian Urine Protein Urine Glucose (UA) Urine Ketones Urine Blood Urine Nitrite Urine Bilirubin Urine Urobilinogen Ur Leukocyte Esterase Urine WBC (Auto) Urine RBC (Auto) Urine Casts (Auto) U Pathogenic Cast Auto U Epithel Cells (Auto) Urine Bacteria (Auto) Salicylates Acetaminophen Alcohol, Quantitative Acetone, Qual RPR Titer Nonreactive 06/04/19 06/04/19 06:00 07:00 WBC RBC Hgb Hct MCV MCH MCHC RDW Plt Count MPV Absolute Neuts (auto) Neutrophils % Lymphocytes % Monocytes % Eosinophils % Basophils % Nucleated RBC % ESR PT with INR INR Sodium 142 Potassium 3.9 Chloride 108 H Carbon Dioxide 26 Anion Gap 7 L BUN 29.8 H Creatinine 1.1 Est GFR (CKD-EPI)AfAm 87.74 Est GFR (CKD-EPI)NonAf 75.70 Random Glucose 105 Lactic Acid Calcium 9.0 Total Bilirubin 0.6 AST 9 L ALT 20 Alkaline Phosphatase 102 Ammonia Creatine Kinase 57 Troponin I < 0.02 C-Reactive Protein Total Protein 6.4 Albumin 3.1 L Vitamin B12 TSH Urine Color Yellow Urine Appearance Turbid Urine pH 6.0 Ur Specific Fithian 1.013 Urine Protein 2+ H Urine Glucose (UA) Negative Urine Ketones Negative Urine Blood 3+ H Urine Nitrite Positive H Urine Bilirubin Negative Urine Urobilinogen 1.0 Ur Leukocyte Esterase 3+ H Urine WBC (Auto) 950 Urine RBC (Auto) 44 Urine Casts (Auto) 57 U Pathogenic Cast Auto None seen U Epithel Cells (Auto) 2.7 Urine Bacteria (Auto) 1076.2 Salicylates Acetaminophen Alcohol, Quantitative Acetone, Qual RPR Titer Problem List - Problems (1) Altered mental status Code(s): R41.82 - ALTERED MENTAL STATUS, UNSPECIFIED (2) Leukocytosis Code(s): D72.829 - ELEVATED WHITE BLOOD CELL COUNT, UNSPECIFIED Qualifiers: Leukocytosis type: unspecified Qualified Code(s): D72.829 - Elevated white blood cell count, unspecified (3) Nephrostomy tube displaced Code(s): T83.022A - DISPLACEMENT OF NEPHROSTOMY CATHETER, INITIAL ENCOUNTER (4) Substance abuse Code(s): F19.10 - OTHER PSYCHOACTIVE SUBSTANCE ABUSE, UNCOMPLICATED (5) UTI (urinary tract infection) Code(s): N39.0 - URINARY TRACT INFECTION, SITE NOT SPECIFIED Assessment/Plan UTI Displaced nephrostomy tube s/p replacement Leukocytosis Substance abuse -- march d/c ceftriaxone after tomorrow's dose -- leukocytosis resolved -- follow up stable at this time
--- NOTE | 2019-06-09 16:56 | PN ---
Progress Note, Physician - Current Medication List Current Medications: Active Medications Acetaminophen (Tylenol -) 650 mg PO Q6H PRN PRN Reason: FEVER Last Admin: 06/08/19 20:50 Dose: 650 mg Heparin Sodium (Porcine) (Heparin -) 5,000 unit SQ BID [facility] Last Admin: 06/09/19 09:02 Dose: 5,000 unit Ceftriaxone Sodium 1 gm/ (Dextrose) 50 mls @ 100 mls/hr IVPB DAILY [facility]; Protocol Last Admin: 06/09/19 10:49 Dose: 100 mls/hr Methadone HCl 80 mg/ Methadone (HCl 30 mg) 110 mg PO DAILY@0600 [facility] Last Admin: 06/09/19 05:47 Dose: 110 mg Quetiapine Fumarate (Seroquel -) 100 mg PO DAILY [facility] Last Admin: 06/09/19 09:02 Dose: 100 mg - Objective Vital Signs: Vital Signs Temperature 98.2 F 06/09/19 14:08 Pulse Rate 70 06/09/19 14:08 Respiratory Rate 20 06/09/19 14:08 Blood Pressure 117/78 06/09/19 14:08 O2 Sat by Pulse Oximetry (%) 100 06/09/19 09:00 Constitutional: Yes: No Distress HENT: Yes: Atraumatic Neck: Yes: Supple Cardiovascular: Yes: Regular Rate and Rhythm Respiratory: Yes: CTA Bilaterally Gastrointestinal: Yes: Normal Bowel Sounds Extremities: Yes: WNL Edema: No Neurological: Yes: Alert, Oriented Labs: CBC, BMP 06/04/19 06:00 06/04/19 06:00 INR, PTT INR 1.17 (0.83-1.09) H 06/02/19 20:55 Problem List - Problems (1) Altered mental status Assessment/Plan: wnl Code(s): R41.82 - ALTERED MENTAL STATUS, UNSPECIFIED (2) Nephrostomy tube displaced Assessment/Plan: fixed Code(s): T83.022A - DISPLACEMENT OF NEPHROSTOMY CATHETER, INITIAL ENCOUNTER (3) Leukocytosis Assessment/Plan: resolved Code(s): D72.829 - ELEVATED WHITE BLOOD CELL COUNT, UNSPECIFIED Qualifiers: Leukocytosis type: unspecified Qualified Code(s): D72.829 - Elevated white blood cell count, unspecified (4) Substance abuse Code(s): F19.10 - OTHER PSYCHOACTIVE SUBSTANCE ABUSE, UNCOMPLICATED (5) UTI (urinary tract infection) Assessment/Plan: dc home after tomorrow abx dose cxs noted Code(s): N39.0 - URINARY TRACT INFECTION, SITE NOT SPECIFIED
[2019-06-09] MEDS: ACETAMINOPHEN 325 MG TABLET (FP) PO PRN ×2 (17:16→22:40)
[2019-06-09 18:57] LABS: BASO % 0.7 % (0-2.0); EOS % 4.6 % (0-4.5); HEMATOCRIT 35.8 % (35.4-49); HEMOGLOBIN 11.4 GM/dL (11.7-16.9); LYMPH % 33.6 % (8-40); MCH 26.1 pg (25.7-33.7); MCHC 31.9 g/dl (32.0-35.9); MEAN CELL VOLUME 81.9 fl (80-96); MEAN PLT VOLUME 9.2 fl (7.5-11.1); MONO % 7.6 % (3.8-10.2); NEUT % 53.5 % (42.8-82.8); PLATELET COUNT 214 K/MM3 (134-434); RBC 4.37 M/mm3 (4.00-5.60); RDW 17.3 % (11.9-15.9); WHITE BLOOD COUNT 7.5 K/mm3 (4.0-10.0)
[2019-06-09 19:32] LABS: ALBUMIN 3.1 g/dl (3.4-5.0); BILIRUBIN,TOTAL 0.2 mg/dL (0.2-1); BLOOD UREA NITROGEN 17.2 mg/dL (7-18); CALCIUM 9.2 mg/dL (8.5-10.1); POTASSIUM 4.2 mmol/L (3.5-5.1); TOT PROT 6.7 g/dl (6.4-8.2)
[2019-06-09] MEDS ORDERED: PT OWN MED DRAWER 7, Y5N ONE (22:57)
[2019-06-10] MEDS ORDERED: METHADONE HCL 10 MG TABLET ONE (05:38)
[2019-06-10] MEDS ORDERED: METHADONE HCL 40 MG DISPERSABLE TABLET ONE (05:39)
[2019-06-10] MEDS: METHADONE 80 MG, METHADONE 30 MG PO SCH (05:53)
[2019-06-10] MEDS ORDERED: QUEtiapine FUMARATE 25 MG TABLET (FP) ONE (08:24)
[2019-06-10] MEDS ORDERED: cefTRIAXone SODIUM 1 GM VIAL ONE (08:24)
[2019-06-10] MEDS ORDERED: DEXTROSE 5%-WATER - 50 ML IVPB ONE (08:24)
[2019-06-10] MEDS: QUEtiapine FUMARATE 50 MG TABLET PO SCH (09:18)
[2019-06-10] MEDS: CEFTRIAXONE 1 GM in DEXTROSE 5%-WATER - 50 ML IVPB SCH (09:18)
[2019-06-10] MEDS: HEPARIN NA (PORCINE) 5,000 UNITS/ML 1ML VIAL SQ SCH (09:19)
--- NOTE | 2019-06-10 09:39 | PN ---
Progress Note, Physician History of Present Illness: Denies fevers or chills, leukocytosis resolved. - Current Medication List Current Medications: Active Medications Acetaminophen (Tylenol -) 650 mg PO Q6H PRN PRN Reason: FEVER Last Admin: 06/09/19 22:40 Dose: 650 mg Heparin Sodium (Porcine) (Heparin -) 5,000 unit SQ BID [facility] Last Admin: 06/10/19 09:19 Dose: Not Given Ceftriaxone Sodium 1 gm/ (Dextrose) 50 mls @ 100 mls/hr IVPB DAILY [facility]; Protocol Last Admin: 06/10/19 09:18 Dose: 100 mls/hr Methadone HCl 80 mg/ Methadone (HCl 30 mg) 110 mg PO DAILY@0600 [facility] Last Admin: 06/10/19 05:53 Dose: 110 mg Quetiapine Fumarate (Seroquel -) 100 mg PO DAILY [facility] Last Admin: 06/10/19 09:18 Dose: 100 mg - Objective Vital Signs: Vital Signs Temperature 98 F 06/10/19 05:46 Pulse Rate 69 06/10/19 05:46 Respiratory Rate 20 06/10/19 05:46 Blood Pressure 121/68 06/10/19 05:46 O2 Sat by Pulse Oximetry (%) 99 06/09/19 21:00 Constitutional: Yes: No Distress, Calm, Thin Neck: Yes: Supple Cardiovascular: Yes: Regular Rate and Rhythm Respiratory: Yes: Regular, CTA Bilaterally Gastrointestinal: Yes: Normal Bowel Sounds, Soft Edema: No Labs: CBC, BMP 06/09/19 17:55 06/09/19 17:55 INR, PTT INR 1.17 (0.83-1.09) H 06/02/19 20:55 Problem List - Problems (1) Leukocytosis Code(s): D72.829 - ELEVATED WHITE BLOOD CELL COUNT, UNSPECIFIED Qualifiers: Leukocytosis type: unspecified Qualified Code(s): D72.829 - Elevated white blood cell count, unspecified (2) Nephrostomy tube displaced Code(s): T83.022A - DISPLACEMENT OF NEPHROSTOMY CATHETER, INITIAL ENCOUNTER (3) Substance abuse Code(s): F19.10 - OTHER PSYCHOACTIVE SUBSTANCE ABUSE, UNCOMPLICATED Assessment/Plan 1. Noncompliance due to social situation 2. Nephrostomy dislodgement post replacement 3. Altered mental status, resolved 4. History of nephrolithiasis and recurrent UTIs, currently with e. coli UTI 5. History of substance abuse currently on Methadone 6. Leukocytosis resolved PLAN: 1. Empiric antibiotics course completed today 2. No need for further cardiac evaluation or medications 3. DVT prophylaxis
[2019-06-10 10:41] VITALS: BP 132/83; PULSE 67; TEMP 97.9
--- NOTE | 2019-06-10 11:44 | PN ---
Progress Note, Physician History of Present Illness: stable no new issues - Current Medication List Current Medications: Active Medications Acetaminophen (Tylenol -) 650 mg PO Q6H PRN PRN Reason: FEVER Last Admin: 06/09/19 22:40 Dose: 650 mg Heparin Sodium (Porcine) (Heparin -) 5,000 unit SQ BID [facility] Last Admin: 06/10/19 09:19 Dose: Not Given Ceftriaxone Sodium 1 gm/ (Dextrose) 50 mls @ 100 mls/hr IVPB DAILY [facility]; Protocol Last Admin: 06/10/19 09:18 Dose: 100 mls/hr Methadone HCl 80 mg/ Methadone (HCl 30 mg) 110 mg PO DAILY@0600 [facility] Last Admin: 06/10/19 05:53 Dose: 110 mg Quetiapine Fumarate (Seroquel -) 100 mg PO DAILY [facility] Last Admin: 06/10/19 09:18 Dose: 100 mg - Objective Vital Signs: Vital Signs Temperature 97.9 F 06/10/19 10:00 Pulse Rate 67 06/10/19 10:00 Respiratory Rate 20 06/10/19 10:00 Blood Pressure 132/83 06/10/19 10:00 O2 Sat by Pulse Oximetry (%) 100 06/10/19 09:00 Constitutional: Yes: No Distress, Calm Cardiovascular: Yes: Regular Rate and Rhythm Respiratory: Yes: Regular, CTA Bilaterally Gastrointestinal: Yes: Normal Bowel Sounds, Soft Musculoskeletal: Yes: WNL Extremities: Yes: WNL Neurological: Yes: Alert, Oriented Psychiatric: Yes: Alert, Oriented Labs: CBC, BMP 06/09/19 17:55 06/09/19 17:55 INR, PTT INR 1.17 (0.83-1.09) H 06/02/19 20:55 Assessment/Plan Problem List - Problems (1) Leukocytosis Code(s): D72.829 - ELEVATED WHITE BLOOD CELL COUNT, UNSPECIFIED Qualifiers: Leukocytosis type: unspecified Qualified Code(s): D72.829 - Elevated white blood cell count, unspecified (2) Nephrostomy tube displaced Code(s): T83.022A - DISPLACEMENT OF NEPHROSTOMY CATHETER, INITIAL ENCOUNTER (3) Substance abuse Code(s): F19.10 - OTHER PSYCHOACTIVE SUBSTANCE ABUSE, UNCOMPLICATED 4 uti plan continue current mgmt rest as per the team
--- NOTE | 2019-06-10 17:24 | DS ---
Physical Examination Vital Signs: Vital Signs Temperature 97.9 F 06/10/19 10:00 Pulse Rate 67 06/10/19 10:00 Respiratory Rate 20 06/10/19 10:00 Blood Pressure 132/83 06/10/19 10:00 O2 Sat by Pulse Oximetry (%) 100 06/10/19 09:00 Constitutional: Yes: No Distress HENT: Yes: Atraumatic Neck: Yes: Supple Cardiovascular: Yes: Regular Rate and Rhythm Respiratory: Yes: CTA Bilaterally Gastrointestinal: Yes: Normal Bowel Sounds Extremities: Yes: WNL Edema: No Peripheral Pulses WNL: Yes Neurological: Yes: Alert, Oriented Labs: CBC, BMP 06/09/19 17:55 06/09/19 17:55 Discharge Summary Reason For Visit: AMS Condition: Fair - Instructions Diet, Activity, Other Instructions: see your urologist 2-3days Disposition: HOME - Home Medications Comprehensive Discharge Medication List: Ambulatory Orders Methadone [Dolophine -] 110 mg PO DAILY 06/02/19 Quetiapine Fumarate [Seroquel] 100 tab PO DAILY 06/02/19 dc home fu pmd as out patient
== END 2019-06-10 13:00 | disposition home or self-care (01) | DRG 466 ==
LOC: JER 15:39 → JERBED 06-03 06:58 → J4W 06-03 19:53 → J7W 06-05 13:12
PROVIDERS: ADMIT Internal Medicine; ATTEND Internal Medicine
PROC: 0T25X0Z Change Drainage Device in Kidney, External Approach (ICD-10-PCS; principal; 2019-06-03)
DX: T83.022A Displacement of nephrostomy catheter, initial encounter (principal); F11.20 Opioid dependence, uncomplicated; G93.89 Other specified disorders of brain; N11.9 Chronic tubulo-interstitial nephritis, unspecified; N39.0 Urinary tract infection, site not specified; F17.210 Nicotine dependence, cigarettes, uncomplicated; Z87.442 Personal history of urinary calculi; Z59.0 Homelessness; Y84.8 Other medical procedures as the cause of abnormal reaction of the patient, or of later complication, without mention of misadventure at the time of the procedure; A49.8 Other bacterial infections of unspecified site
CPT/HCPCS: 36415; 50435; 70450-TC; 71045-TC-FY; 74176-TC; 80053; 80307; 81003; 82009; 82140; 82550; 82607; 83605; 84443; 84484; 85025; 85610; 86140; 86593; 87040; 87077; 87086; 87186; 93005; 93010; 99284-25; A4358; C1729; C1769; J1644; J7030